=== PATIENT | female | born 1955 | race Caucasian/White ===

== ENCOUNTER 2018-06-17 02:05 | Outpatient (CLI) | payer BC, SELFPAY ==
[2018-06-17 08:55] LABS: ALT 30 U/L (12-78); AST 16 U/L (15-37); Albumin 3.5 g/dL (3.4-5.0); Alkaline Phosphatase 65 U/L (46-116); Anion Gap 7.6 mmol/L (3-11); BUN 20 mg/dL (7-18); Bilirubin, Total 0.5 mg/dL (0.2-1.0); CO2 30.4 mmol/L (21.0-32.0); CREATININE 0.95 mg/dL (0.55-1.02); Chloride 102 mmol/L (98-107); Cholesterol 222 mg/dL (50-200); Estimated GFR 59.41 (mL/min/1.73m2); Glucose 99 mg/dL (70-100); HDL Cholesterol 50 mg/dL (40-60); LDL CHOLESTEROL 148 mg/dL (<100); Potassium 4.4 mmol/L (3.5-5.1); Sodium 140 mmol/L (136-145); Total Protein 6.6 g/dL (6.4-8.2); Triglyceride 191 mg/dL (30-150)
== END 2018-06-17 02:25 ==
PROVIDERS: PCP Family Medicine; Visit Provider Family Medicine
DX: E78.5 Hyperlipidemia, unspecified (principal); I10 Essential (primary) hypertension
CPT/HCPCS: 36415; 80053; 80061; 83721

== ENCOUNTER 2018-10-23 08:17 | Outpatient (CLI) | payer BC, SELFPAY ==
--- NOTE | 2018-10-23 09:38 | DI.RAD_ITS ---
SYMPTOM/DIAGNOSIS: PERSISTENT COUGH, R05 PA AND LATERAL CHEST: There are no prior comparison exams. The heart size is normal. The aorta is tortuous. The lungs appear clear. No infiltrate or effusion is seen. There are no visible emphysematous or fibrotic changes. There are mild degenerative changes in the thoracic spine. IMPRESSION: No acute abnormality.
[2018-10-23 10:24] LABS: Abs Immature Grans 0.01 k/cumm (0.0-0.09); Absolute Basophil Count 0.02 k/cumm (0.0-0.2); Absolute Eosinophil Count 0.09 k/cumm (0.0-0.7); Absolute Lymphocyte Count 1.81 k/cumm (1.2-3.4); Absolute Monocyte Count 0.57 k/cumm (0.11-0.7); Absolute Neutrophil Count 4.52 k/cumm (1.2-6.7); Basophils % 0.3; Eosinophils % 1.3; HCT 40.9 % (36.0-46.0); HGB 13.8 g/dL (12.0-15.5); Immature Grans % 0.1; Lymphocytes % 25.8; Mean Corp. HGB Concentration 33.7 g/dL (32.0-36.0); Mean Corpuscular Hemoglobin 30.3 pg (27.0-33.0); Mean Corpuscular Volume 89.9 fL (80-95); Monocytes % 8.1; Neutrophils % 64.4; Platelet Count 253 x1000/uL (130-400); RBC 4.55 m/cumm (4.00-5.20); RBC Distribution Width 13.3 % (11.7-14.6); White Blood Cell Count 7.02 k/cumm (4.4-10.8)
== END 2018-10-23 08:37 ==
PROVIDERS: PCP Family Medicine; Visit Provider Nurse Practitioner Family
DX: R05 Cough (principal)
CPT/HCPCS: 36415; 71046; 85025

== ENCOUNTER 2018-10-26 08:27 | Emergency (ER) | payer BC, SELFPAY ==
[2018-10-26 08:56] VITALS: BP 173/82; PULSE 78; RESP 16; TEMP 37; O2SAT 97
[2018-10-26] MEDS: Gelatin SPONGE 12-7 MM PKT 1 EACH TP (09:10)
--- NOTE | 2018-10-26 09:17 | ED.GENADUL_ITS ---
Discharge Plan Disposition Patient Disposition: HOME Condition: Improving Discharge Details Chief Complaint: Vascular Clinical Impression: Bleeding from varicose vein Primary Care Provider: Lupe Rogers ED Provider: Can Hua Home Meds and New Rx's Prescriptions: Continued albuterol sulfate [ProAir HFA] 90 mcg/actuation HFA aerosol inhaler 2 puff IH QID PRN (Reason: shortness of breath or wheezing) Qty: 8.5 RF: 1 triamcinolone acetonide 0.5 % cream 1 applic TP BID Qty: 15 RF: 1 prednisone 20 mg tablet 40 mg PO DAILY 5 Days Qty: 10 RF: 0 benzonatate 100 mg capsule 100 - 200 mg PO TID PRN (Reason: cough) Qty: 60 RF: 0 aspirin [Aspir-81] 81 MG tablet,delayed release (DR/EC) 1 tab PO DAILY RF: 0 Prilosec OTC 20 MG tablet,delayed release (DR/EC) 20 tab PO Every Other Day RF: 0 One Daily For Women 1 EACH tablet 1 ea PO MOST DAYS RF: 0 calcium carbonate-vitamin D3 [Caltrate with Vitamin D3] 1 EACH tablet 1 ea PO BID RF: 0 pravastatin 10 MG tablet 10 mg PO DAILY Qty: 30 RF: 11 hydrochlorothiazide 25 MG tablet 1 tab PO QAM Qty: 30 RF: 11 fluoxetine 20 MG capsule 20 mg PO DAILY Qty: 30 RF: 6 amlodipine 5 mg tablet 5 mg PO DAILY Qty: 30 RF: 3 Discharge Instructions Additional Instructions: Leave dressing in place for 72 hours. Then placed Band-Aid for the next 3-5 days time. Return for any acute concerns. Continue your regular medication Medical Decision Making 63-year-old female presents with punctate left anterior tibial bleeding varicosity. Ceased with pressure. I placed a small piece of Gelfoam and pressure dressing with persistent resolution of bleeding. Patient will be discharged home. See discharge instructions HPI General Mode of arrival: ambulatory . Date/Time Provider Initiated Documentation: 10/26/18 09:01 . Limitations to Documentation: no limitations . Information obtained by: patient . History of Present Illness 63 year old F presents to the emergency department with the chief complaint of Left lower extremity anterior tibia bleed, described as moderate, and it has been now resolved. other things that improve symptom(s), (Pressure) No exacerbating factors reported . Patient notes no other symptoms.. Patient did receive the following treatments prior to arrival, none Related Data Home Medications Medication Instructions Recorded Confirmed Prilosec OTC 20 tab PO Every Other Day 12/21/12 10/26/18 aspirin [Aspir-81] 1 tab PO DAILY tab-cap 12/21/12 10/26/18 One Daily For Women 1 ea PO MOST DAYS tab 12/30/12 10/26/18 calcium carbonate-vitamin D3 1 ea PO BID tab 12/30/12 10/26/18 [Caltrate with Vitamin D3] fluoxetine 20 mg PO DAILY #30 tab-cap 04/20/18 10/26/18 hydrochlorothiazide 1 tab PO QAM #30 tab-cap 04/20/18 10/26/18 pravastatin 10 mg PO DAILY #30 tab-cap 04/20/18 10/26/18 albuterol sulfate HFA 90 2 puff IH QID PRN #8.5 gm 09/08/18 10/26/18 mcg/actuation aerosol inhaler triamcinolone acetonide 0.5 % 1 applic TP BID #15 gm 09/08/18 10/26/18 topical cream amlodipine 5 mg tablet 5 mg PO DAILY #30 tab 10/16/18 10/26/18 benzonatate 100 mg capsule 100 - 200 mg PO TID PRN #60 cap 10/22/18 10/26/18 prednisone 20 mg tablet 40 mg PO DAILY 5 Days #10 tab 10/22/18 10/26/18 Previous Rx's Medication Instructions Recorded fluoxetine 20 mg PO DAILY #30 tab-cap 04/20/18 hydrochlorothiazide 1 tab PO QAM #30 tab-cap 04/20/18 pravastatin 10 mg PO DAILY #30 tab-cap 04/20/18 albuterol sulfate HFA 90 2 puff IH QID PRN #8.5 gm 09/08/18 mcg/actuation aerosol inhaler triamcinolone acetonide 0.5 % 1 applic TP BID #15 gm 09/08/18 topical cream amlodipine 5 mg tablet 5 mg PO DAILY #30 tab 10/16/18 benzonatate 100 mg capsule 100 - 200 mg PO TID PRN #60 cap 10/22/18 prednisone 20 mg tablet 40 mg PO DAILY 5 Days #10 tab 10/22/18 Allergies Allergy/AdvReac Type Severity Reaction Status Date / Time lisinopril AdvReac Intermediate COUGH Verified 10/26/18 09:00 General Stated Complaint: Vascular MOUNIKA: 4 Review of Systems Review of Systems 8 systems reviewed and otherwise - [facility] Medical History Gastroesophageal reflux disease (Chronic) Essential hypertension (Chronic 06/09/13) Family History Mother Stroke Father Essential hypertension Aortic aneurysm Neoplasm Sister Diabetes Morbid obesity Essential hypertension Heart disease Brother Morbid obesity Essential hypertension Chronic kidney disease Neoplasm Grandfather No problems noted. Grandfather No problems noted. Grandmother No problems noted. Grandmother No problems noted. Sister Morbid obesity Essential hypertension Depression Social History Smoking and Tabacco status: Never Exam Narrative Exam Narrative: GEN: awake, alert, oriented 3. Pleasant, well groomed, interactive. HEAD: Normocephalic, atraumatic ENT: Mucous membranes moist, oropharynx unremarkable, External ear exam unremarkable EYES: PERRL, EOMI EXT: Full ROM, no edema, no rash. Left mid anterior tibia with bleeding varicosity. Neuro: Grossly normal neurologic exam, conversant, interactive. Psych: Speech fluent, thoughts congruent, affect normal Course Vital Signs Temperature 37 C 10/26/18 08:56 Pulse 78 10/26/18 08:56 Respiratory Rate 16 10/26/18 08:56 Blood Pressure 173/82 H 10/26/18 08:56 Pulse Oximetry 97 10/26/18 08:56 Temperature 37 C 10/26/18 08:56 Temperature Source Skin 10/26/18 08:56 Pulse 78 10/26/18 08:56 Respiratory Rate 16 10/26/18 08:56 Respiratory Effort Non-Labored 10/26/18 08:56 Blood Pressure 173/82 H 10/26/18 08:56 Blood Pressure Position Supine 10/26/18 08:56 Pulse Oximetry 97 10/26/18 08:56 Oxygen Delivery Method Room Air 10/26/18 08:56 Oxygen Flow Rate 0 10/26/18 08:56 Pain Level 0 10/26/18 08:56
== END 2018-10-26 09:25 | disposition home or self-care (01) ==
PROVIDERS: Emergency Provider Emergency Medicine; PCP Family Medicine
DX: I83.892 Varicose veins of left lower extremity with other complications (principal); I10 Essential (primary) hypertension
CPT/HCPCS: 99282

== ENCOUNTER 2019-04-09 02:07 | Outpatient (CLI) | payer BC, SELFPAY ==
[2019-04-09 09:36] LABS: ALT 28 U/L (12-78); AST 14 U/L (15-37); Albumin 3.6 g/dL (3.4-5.0); Alkaline Phosphatase 69 U/L (46-116); Anion Gap 8.9 mmol/L (3-11); BUN 14 mg/dL (7-18); Bilirubin, Total 0.5 mg/dL (0.2-1.0); CO2 29.1 mmol/L (21.0-32.0); CREATININE 0.76 mg/dL (0.55-1.02); Calcium 8.6 mg/dL (8.5-10.1); Calculated LDL 122 mg/dL; Chloride 98 mmol/L (98-107); Cholesterol 194 mg/dL (50-200); Glucose 102 mg/dL (70-100); HDL Cholesterol 48 mg/dL (40-60); Magnesium 1.8 mg/dL (1.8-2.4); Sodium 136 mmol/L (136-145); Total Protein 6.9 g/dL (6.4-8.2); Triglyceride 124 mg/dL (30-150)
== END 2019-04-09 02:27 ==
PROVIDERS: PCP Family Medicine; Visit Provider Family Medicine
DX: I10 Essential (primary) hypertension (principal); E78.5 Hyperlipidemia, unspecified; E83.42 Hypomagnesemia
CPT/HCPCS: 36415; 80053; 80061; 83721; 83735

== ENCOUNTER 2019-06-17 06:40 | Outpatient (CLI) | payer BC, SELFPAY ==
--- NOTE | 2019-06-17 07:29 | DI.MAMMO_ITS ---
EXAM: MAMMO SCREENING CLINICAL HISTORY: screening,Z12.39. TECHNIQUE: Mammograms were interpreted according to the usual protocol including computer analysis w Esc[employer] CAD system, tomosynthesis and C-view imaging. FINDINGS: The breast tissue is moderately radiodense. There is no evidence of a dominant mass. There is no yonathan dence of suspicious calcifications and there has been no significant interval change when compared wi th previous images. IMPRESSION: No evidence of malignancy, category 1, yearly screening mammography is recommended. Breast density, category B. BI-RADS Cat 1 - Negative. Breast Density - Category B - Scattered areas of fibroglandular density.
== END 2019-06-17 07:00 ==
PROVIDERS: PCP Family Medicine; Visit Provider Family Medicine
DX: Z12.31 Encounter for screening mammogram for malignant neoplasm of breast (principal)
CPT/HCPCS: 77063; 77067

== ENCOUNTER 2019-11-03 02:16 | Outpatient (CLI) | payer BC, MEDICARE, SELFPAY ==
--- NOTE | 2019-11-03 09:15 | DI.RAD_ITS ---
EXAM: RF BARIUM SWALLOW CLINICAL HISTORY: choking, T17.308A TECHNIQUE: 2D and realtime digital imaging was performed. CONTRAST MATERIAL: Thick and thin barium and barium tablet were administered. COMPARISON: XR CHEST 2V PA LATERAL from 10/23/2018 FINDINGS: Initial plain film of the chest reveals normal heart size and clear lung up. The aorta is tortuo us. The lateral caster helper view of the neck shows degenerative changes greatest of the facet joints. The airway is intact. Esophagus: The patient swallowed barium without difficulty. No aspiration was observed during the ex am. There is normal peristalsis. There is a mildly narrowing Schatzki ring. The barium tablet pass ed through without delay. There is a small sliding hiatal hernia. There is severe gastroesophageal reflux when the patient was placed supine. IMPRESSION: Schatzki ring without significant narrowing. Severe gastroesophageal reflux. Fluoro time: 27 sec, 8.42 mGy
[2019-11-03] MEDS: Barium Sulfate 60% W/V 355 ML BTL PO (10:13)
[2019-11-03] MEDS: Simethicone/Sod Bicarb/Cit Ac, 4 gram PACKET 1 PACKET PO (10:14)
[2019-11-03] MEDS: Barium Sulfate 700 MG TAB PO (10:14)
== END 2019-11-03 02:36 ==
PROVIDERS: PCP Family Medicine; Visit Provider Family Medicine
DX: K22.2 Esophageal obstruction (principal); K21.9 Gastro-esophageal reflux disease without esophagitis; T17.308A Unspecified foreign body in larynx causing other injury, initial encounter
CPT/HCPCS: 74221; J3490

== ENCOUNTER 2020-07-12 00:20 | Outpatient (CLI) | payer BC, SELFPAY ==
[2020-07-14 22:30] LABS: Patient Race White; SARS-CoV-2 Specimen Source Nasal
[2020-07-15 10:28] LABS: SARS-CoV-2 RNA Detected (Undetected)
== END 2020-07-12 00:40 ==
PROVIDERS: PCP Family Medicine; Visit Provider Nurse Practitioner Family
DX: Z11.59 Encounter for screening for other viral diseases (principal)
CPT/HCPCS: U0003

== ENCOUNTER 2020-07-25 02:24 | Outpatient (CLI) | payer BC, SELFPAY ==
[2020-07-27 18:00] LABS: Patient Race White; SARS-CoV-2 RNA Undetected (Undetected); SARS-CoV-2 Specimen Source Nasal
== END 2020-07-25 02:44 ==
PROVIDERS: PCP Family Medicine; Visit Provider Family Medicine
DX: Z11.59 Encounter for screening for other viral diseases (principal); Z20.828 Contact with and (suspected) exposure to other viral communicable diseases
CPT/HCPCS: U0003

== ENCOUNTER 2021-01-24 03:17 | Outpatient (CLI) | payer BC, SELFPAY ==
[2021-01-24 10:14] LABS: ALT 40 U/L (14-59); AST 23 U/L (15-37); Albumin 3.8 g/dL (3.4-5.0); Alkaline Phosphatase 70 U/L (46-116); Anion Gap 8.8 mmol/L (3-11); BUN 16 mg/dL (7-18); Bilirubin, Total 0.7 mg/dL (0.2-1.0); CO2 32.2 mmol/L (21.0-32.0); CREATININE 0.8 mg/dL (0.55-1.02); Calcium 9.1 mg/dL (8.5-10.1); Calculated LDL 156 mg/dL (<100); Chloride 96 mmol/L (98-107); Cholesterol 232 mg/dL (<200); Glucose 108 mg/dL (74-106); HDL Cholesterol 57 mg/dL (40-60); Potassium 3.8 mmol/L (3.5-5.1); Sodium 137 mmol/L (136-145); Total Protein 7.1 g/dL (6.4-8.2); Triglyceride 99 mg/dL (<150)
== END 2021-01-24 03:18 | disposition home or self-care (01) ==
LOC: LBO 03:17
PROVIDERS: PCP Family Medicine; Visit Provider Family Medicine
DX: I10 Essential (primary) hypertension (principal); Z13.220 Encounter for screening for lipoid disorders
CPT/HCPCS: 36415; 80053; 80061

== ENCOUNTER 2021-02-05 01:33 | Outpatient (CLI) | payer BC, SELFPAY ==
--- NOTE | 2021-02-05 08:18 | DI.MAMMO_ITS ---
Exam(s) MAMMO SCREENING EXAM: MAMMO SCREENING CLINICAL HISTORY: screening,z12.39. TECHNIQUE: Bilateral full field digital CC and MLO mammographic images were obtained with 3D tomosyn thesis and utilizing computer aided detection (CAD). COMPARISON: Prior mammograms dating back to 2013, the most recent being May 2019. FINDINGS: There has been no significant change in the appearance and distribution of fibroglandular tissue Area of asymmetric density upper-outer quadrant left breast is unchanged from 2013 and therefore pedro gn. There are no new spiculated masses nor malignant appearing microcalcification groups. There is no significant architectural distortion nor skin thickening-retraction. IMPRESSION: No radiographic evidence of malignancy. Stable benign findings. BI-RADS Category 2 - Benign Findings Breast Density - Category B - Scattered areas of fibroglandular density Breast density Category C or D implies that the patient has dense breast tissue. Dense breast tissue can make it harder to find cancer on a mammogram. Dense breast tissue is also associated with an incr eased risk of breast cancer. This information about the result of the mammogram report was provided to the patient to raise their awareness. Use this report when you speak with the patient about their risks for breast cancer, which includes their family history. At that time, you may recommend additional screening tests (Ultrasoun d or MRI) as these tests may add significant information. A negative radiographic report should not delay biopsy if a dominant or clinically suspicious mass is present. Up to ten percent of cancers are not identified on mammography. A negative report may reinforce clinical impression. Adenosis and dense breasts may obscure an underlying neoplasm. False positive reports average 6 to 10%. Patient will receive a letter notifying them of these results.
== END 2021-02-05 01:53 ==
PROVIDERS: PCP Family Medicine; Visit Provider Family Medicine
DX: Z12.31 Encounter for screening mammogram for malignant neoplasm of breast (principal)
CPT/HCPCS: 77063; 77067

== ENCOUNTER 2022-01-22 02:44 | Outpatient (CLI) | payer BC, SELFPAY ==
[2022-01-22 10:02] LABS: ALT 26 U/L (14-59); BUN 16 mg/dL (7-18); CREATININE 0.9 mg/dL (0.55-1.02); Calcium 8.9 mg/dL (8.5-10.1); Calculated LDL 134 mg/dL (<100); Chloride 103 mmol/L (98-107); Cholesterol 221 mg/dL (<200); Glucose 108 mg/dL (74-106); HDL Cholesterol 61 mg/dL (40-60); Potassium 4.2 mmol/L (3.5-5.1); Sodium 138 mmol/L (136-145); Triglyceride 133 mg/dL (<150)
[2022-01-23 09:59] LABS: HIV-1/2 Ag & Ab Screen Negative (Negative)
[2022-01-23 10:18] LABS: Hepatitis C Ab w Rflx HCV PCR Negative (Negative)
== END 2022-01-22 02:45 | disposition home or self-care (01) ==
LOC: LBO 02:45
PROVIDERS: PCP Nurse Practitioner; Visit Provider Family Medicine
DX: I10 Essential (primary) hypertension (principal); E78.5 Hyperlipidemia, unspecified; Z11.59 Encounter for screening for other viral diseases; Z11.4 Encounter for screening for human immunodeficiency virus [HIV]
CPT/HCPCS: 36415; 80048; 80061; 86803; 87389; 84460

== ENCOUNTER 2022-02-27 03:01 | Outpatient (CLI) | payer BC, SELFPAY ==
[2022-02-27 16:23] LABS: Anion Gap 7.5 mmol/L (3-11); BUN 15 mg/dL (7-18); CO2 28.5 mmol/L (21.0-32.0); CREATININE 0.8 mg/dL (0.55-1.02); Calcium 8.6 mg/dL (8.5-10.1); Chloride 95 mmol/L (98-107); Glucose 100 mg/dL (74-106); Potassium 3.7 mmol/L (3.5-5.1); Sodium 131 mmol/L (136-145)
== END 2022-02-27 03:02 | disposition home or self-care (01) ==
LOC: LBO 03:01
PROVIDERS: PCP Nurse Practitioner; Visit Provider Nurse Practitioner
DX: I10 Essential (primary) hypertension (principal)
CPT/HCPCS: 36415; 80048

== ENCOUNTER → 2022-02-27 09:04 | Outpatient (CLI) | payer BC, SELFPAY ==
--- OUTSIDE RECORDS SUMMARY | 2022-02-27 09:06 | XMS_ITS | Encounter Summary ---
:1955 Author Organization [facility] Address [address] [place] [address] Care Team Providers Name Role Phone Unavailable Primary Care Provider Unavailable Encounter Details Date Type Department Care Team Description 11/18/2005 Results Only [facility] - Corinna Johnson MD [facility] [address] [facility] [address] [place] [address] [place] [address] (Wo rk) Social History Tobacco Use Types Packs/Day Years Used Date Never Assessed Sex Assigned at Date Recorded Not on file documented as of this encounter Plan of Treatment Not on filedocumented as of this encounter Procedures Procedure Name Priority Date/Time Associated Diagnosis Comme nts CYTOPATHOLOGY Routine 11/18/2005 0:00 EST Results for this procedure are i n the results section . documented in this encounter Results CYTOPATHOLOGY (11/18/2005 0:00 EST) Pathology Report: CYTOPATHOLOGY REPORT [facility] Reports generated via electronic interface contain gilbert ginal data; however they are lacking the format of the original re port. Caution should be taken when reading/interpreting unfo rmatted reports. Name: ? DIANNE ESQUIVEL ? Accession #: ? [id number] : ? 1955 (Age: 50) ??F ?Collect Date: ? 10/24 Location: ? [facility] ? Receive Date : ? 11/20/2005 Provider: ?CORINNA AARON MD Copy to: ? Specimen/Source: ? ThinPrep Pap Test, Cervix/Endocervix, processed on [employer] ThinPrep Imaging System, with manual evaluation Last Menstrual Period: ? Menstrual/ Status: ? Post Menopausal Treatment History: ? Cryotherapy: 26 yrs ago ? SPECIMEN ADEQUACY ? Satisfactory for Evaluation - assessment of transformation zone component not appl icable ( e.g. atrophy, vaginal sample, hysterectomy) - scant squamous epithelial component secondary to exc essive inflammation GENERAL CATEGORIZATION ? Negative for Intraepithelial Lesion or Malignan cy ? Document reviewed and electronically signed by: ? Radha Stringer, SCT(ASCP) ? Report Date: ??11/26/2005 09:25 End of Report Specimen Performing Organization Address City/State/ZIP Code Phon e Number [facility] [address] [place] [address] SERVICES [facility] [address] [place] [address] documented in this encounter Visit Diagnoses Not on filedocumented in this encounter
--- OUTSIDE RECORDS SUMMARY | 2022-02-27 09:06 | XMS_ITS | Encounter Summary ---
:1955 Author Organization [facility] Address [address] [place] [address] Care Team Providers Name Role Phone Unavailable Primary Care Provider Unavailable Encounter Details Date Type Department Care Team Description 12/09/[address] [facility] - Jcarlos Alan MD conversion [address] [place] [address] [place], [place] [id number] [phone] Social History Tobacco Use Types Packs/Day Years Used Date Never Assessed Sex Assigned at Date Recorded Not on file documented as of this encounter Plan of Treatment Not on filedocumented as of this encounter Procedures Procedure Name Priority Date/Time Associated Diagnosis Comme nts SURGICAL PATHOLOGY Routine 12/09/2005 0:00 EDT Re sults for this procedure are i n the results section. documented in this encounter Results SURGICAL PATHOLOGY (12/09/2005 0:00 EDT) Pathology Report: SURGICAL PATHOLOGY REPORT [facility] Reports generated via electronic interface contain gilbert ginal data; LAB however they are lacking the format of the original re port. Caution should be taken when reading/interpreting unfo rmatted reports. Name: ? DIANNE ESQUIVEL ? Accession #: ? [id number] ? : ? 1955 (Age: 50) ??F ? Collect Date: ? 12/09/2005 ? Location: ? [facility] ? Receive Date: ? 006 ? Provider: JCARLOS YEE MD Copy to: PORTIA HERBERT MD ? Final Pathologic Diagnosis: ? Colon, rectosigmoid, polypectomy: - Hyperplastic polyp (1 piece), no adenoma. Document reviewed and electronically signed by: Gail Hopkins MD Report ??Date: 12/11/2005 15:07 By the signature above, the attending physician certif ies that he/she has personally conducted a gross and/or microscopic examin ation of the described specimens and rendered or confirmed the above diagnosi s. Specimen(s) Received: ? Rectosigmoid polyp Clinical History: ? Screening Gross Description: ? Received in Hollande's fixative labelled Luigi and #1 rectosigmoid polyp is a 0.2 x 0.2 x 0.2 cm portion of clemons soft tis funmi, which is entirely submitted in one cassette. (Dr. Brooks)/[facility] End of Report Specimen Performing Organization Address City/State/ZIP Code Phon e Number [facility] [address] [place] [address] SERVICES [facility] [address] [place] [address] documented in this encounter Visit Diagnoses Not on filedocumented in this encounter
--- OUTSIDE RECORDS SUMMARY | 2022-02-27 09:06 | XMS_ITS | Encounter Summary ---
:1955 Author Organization [facility] Address [address] [place] [address] Care Team Providers Name Role Phone Unavailable Primary Care Provider Unavailable Encounter Details Date Type Department Care Team Description 06/08/2009 Orders Only [facility] Ailyn Brown MD Laboratory Services - [address] [place] [address] [address] [place] [address] [phone] Social History Tobacco Use Types Packs/Day Years Used Date Never Assessed Sex Assigned at Date Recorded Not on file documented as of this encounter Plan of Treatment Not on filedocumented as of this encounter Procedures Procedure Name Priority Date/Time Associated Comments Diagnosis HPV DETECTION, HIGH Routine 06/08/2009 14:35 Resu lts for this RISK TYPES EDT procedure are i n the results section. CYTOPATHOLOGY Routine 06/08/2009 0:00 Results for this EDT procedure are i n the results section. documented in this encounter Results HUMAN PAPILLOMA VIRUS DNA TEST (06/08/2009 14:35 EDT) Specimen Description Cervix, ThinPrep [facility] vial Result Negative for HPV [facility] types 16, 18, 31, 33, 35, 39, 45, 51, 52, 56, 58, 59, and 68. Report Status Final [facility] 06/21/2009 Specimen Performing Organization Address City/State/ZIP Code Phon e Number [facility] [address] [place] [address] SERVICES [facility] [address] [place] [address] CYTOPATHOLOGY (06/08/2009 0:00 EDT) Pathology Report: CYTOPATHOLOGY REPORT ? [facility] ? LAB Reports generated via electr Huddleic interface contain original data; ? however they are lacking the format of the original report. ? Caution should be taken when reading/interpreting unformatted reports. ? Name: ? DIANNE ESQUIVEL ? Accession #: ? [id number] ? : ? 1955 (Age: 53) ??F ?Collect Date: ? 06/08/2009 ? Location: ? [facility] ? Receive Date: ? 06/09/2009 ? Provider: ?MAKSIM ARNDT MD ? Copy to: ? Specimen/Source: ? Pap Test, Cervix/Endocervix, ThinPrep Imaging System ? with manual evaluation ? Last Menstrual Period: ? Menstrual/ Status: ? Post Menopausal ? Other: ? HPVDX - HPV testing requeste d regardless of diagnosis on current ThinPrep Pap ?? test. ? SPECIMEN ADEQUACY ? Satisfactory for Eval uation ? - assessment of transformati on zone component not applicable ( e.g. atrophy, ? vaginal sample, hysterectomy ) ? GENERAL CATEGORIZATION ? Negative for Intraepi thelial Lesion or Malignancy ? Document reviewed and electr onically signed by: ? Lynan Chriss, CT(ASCP) ? Report Date: ??10/22/ 2009 11:26 ? End of Report ? Specimen Performing Organization Address City/State/ZIP Code Phon e Number [facility] [address] [place] [address] SERVICES [facility] [address] [place] [address] documented in this encounter Visit Diagnoses Not on filedocumented in this encounter
--- OUTSIDE RECORDS SUMMARY | 2022-02-27 09:06 | XMS_ITS | Encounter Summary ---
:1955 Author Organization [facility] Address [address] [place] [address] Care Team Providers Name Role Phone Unavailable Primary Care Provider Unavailable Encounter Details Date Type Department Care Team Description 04/17/2011 Results Only [facility] Jcarlos Vega MD Laboratory Services - [address] [place] [address] [address] [place] [address] [phone] Social History Tobacco Use Types Packs/Day Years Used Date Never Assessed Sex Assigned at Date Recorded Not on file documented as of this encounter Plan of Treatment Not on filedocumented as of this encounter Procedures Procedure Name Priority Date/Time Associated Diagnosis Comme [facility] SURGICAL PATHOLOGY Routine 04/17/2011 0:00 EDT Re sults for this procedure are i n the results section. documented in this encounter Results SURGICAL PATHOLOGY (04/17/2011 0:00 EDT) Pathology Report: SURGICAL PATHOLOGY REPORT ? [facility] Reports generated via electr Solartrec interface contain original data; ? LAB however they are lacking the format of the original report. ? Caution should be taken when reading/interpreting unformatted reports. ? Name: ? SIERRA, DIANNE ? Accession #: ? [id number] ? : ? 1955 (Age: 55) ??F ? Collec t Date: ? 04/17/2011 ? Location: ? [facility] ? R eceive Date: ? 04/17/2011 ? Provider: JCARLOS WALKO MD ? Copy to: RAPHAEL RUDOLPH EBD TEACHER ? Final Pathologic Diagnosis: ? A. ?Stomach, an trum, biopsies: ? 1. ?Antral muco sa with mild chronic gastritis. ? 2. ? No Helicobacter pyl gilbert-like microorganisms identified on H&E-stained ? sections. ? B. ?Stomach, elida dy, biopsies: ? 1. ?Oxyntic-typ e mucosa with mild chronic gastritis. ? 2. ? No Helicobacter pyl gilbert-like microorganisms identified on H&E-stained ? sections. ? C. ?Stomach, po lyp, biopsy: ? 1. ?Madison grimm d polyp. ? D. ?Esophagus, lower, 37 cm, biopsies: ? 1. ?Squamous mu cosa with mild reactive epithelial changes. ? 2. ? No evidence of intr aepithelial eosinophils. ? E. ?Esophagus, mid, 22 cm, biopsies: ? 1. ?Squamous mu cosa with mild reactive epithelial changes. ? 2. ? No evidence of intr aepithelial eosinophils. ? Document reviewed and electr onically signed by: ? DILCIA C LEMUS MD ? Report ??Date: 04/19/2011 15 :38 ? By the signature above, the attending physician certifies that he/she has ? personally conducted a gross and/or microscopic examination of the described ? specimens and rendered or co nfirmed the above diagnosis. ? Specimen(s) Received: ? A. ?Bx gastric antrum ? B. ? Bx gastric body ? C. ? Fundic gland polyp ? D. ? Lower esophagus 37 cm ? E. ? Mid esophagus 22 cm ? Clinical History: ? 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 Gross Description: ? Received in formalin labelled Sierra, Dianen and biopsy gastric antrum ?? are two pink-clemons irregular s oft tissues, 0.3 x 0.2 x 0.2 cm and 0.5 x 0.2 x 0.1 cm. ??Submitted in toto as ( A). ? Received in formalin renettaDianne Delaney and biopsy gastric body are two pink-clemons irregular soft tiss ues, each 0.7 x 0.2 x 0.1 cm. ??Submitted in toto as (B). ? Received in formalin renetta Meyers, Dianne and fundic gland polyp is a ? single 0.6 x 0.3 x 0.2 cm pi nk-clemons irregular soft tissue. ??Submitted in toto as (C). ? Received in formalin renetta d Sierra, Dianne and lower esophagus 37 cm are ?? two clemons-white irregular soft tissues, 0.3 x 0.3 x 0.1 cm and 0.3 x 0.3 x 0.2 cm. Submitted in toto as (D). ? Received in formalin renetta d Sierra, Dianne and mid esophagus 22 cm are two clemons-white irregular soft tis sues, 0.2 x 0.2 x 0.1 cm and 0.5 x 0.2 x 0.1 cm. ? Submitted in toto as (E). ?? (Jordan Golden)/jonathan ? End of Report ? Specimen Performing Organization Address City/State/ZIP Code Phon e Number [facility] [address] [place] [address] SERVICES [facility] [address] [place] [address] documented in this encounter Visit Diagnoses Not on filedocumented in this encounter
--- OUTSIDE RECORDS SUMMARY | 2022-02-27 09:06 | XMS_ITS | Encounter Summary ---
:[address] [facility] Address [address] [place] [address] Care Team Providers Name Role Phone Jennifer Palmer SALES SUPPORT REPRESENTATIVE Primary Care Provider Encounter Details Date Type Department Care Team Description 01/22/2022 Lab Requisition [facility] Outr Resulting Lab, Pathology & Laboratory Provider [facility] [address] [place], [place] [id number] Social History Tobacco Use Types Packs/Day Years Used Date Never Assessed Sex Assigned at Date Recorded Not on file documented as of this encounter Plan of Treatment Not on filedocumented as of this encounter Procedures Procedure Name Priority Date/Time Associated Diagnosis Comme nts HEPATITIS C AB W Routine 01/22/2022 8:47 EDT Resu lts for this REFLEX TO HCV RNA procedure are in BY PCR the results section. documented in this encounter Results HEPATITIS C AB W REFLEX TO HCV RNA BY PCR (01/22/2022 8:47 EDT) Pathologist Sig nature Hep C Antibody Negative Negative [facility] Specimen Blood - Venous blood (substance) Performing Organization Address City/State/ZIP Code Phon e Number [facility] [address] [place] [address] SERVICES documented in this encounter Visit Diagnoses Not on filedocumented in this encounter Care Teams Hvac Service Tech Relationship Specialty Start Date End Date Jennifer Palmer NP PCP - General 04/19/11 [place], [place] [id number] documented as of this encounter
--- OUTSIDE RECORDS SUMMARY | 2022-02-27 09:06 | XMS_ITS | Encounter Summary ---
:1955 Author Organization [facility] Address [address] [place] [address] Care Team Providers Name Role Phone Jennifer Palmer NP Primary Care Provider Encounter Details Date Type Department Care Team Description 05/29/2017 Results Only [facility]- PRISM Beth Tellez, REAL ESTATE AGENCY PRINCIPAL [phone] [facility] [place] [address] (Wo rk) Social History Tobacco Use Types Packs/Day Years Used Date Never Assessed Sex Assigned at Date Recorded Not on file documented as of this encounter Plan of Treatment Not on filedocumented as of this encounter Procedures Procedure Name Priority Date/Time Associated Diagnosis Comme nts PAP TEST- RESULT Routine 05/29/2017 0:00 EDT Resu lts for this ONLY procedure are i n the results section. documented in this encounter Results PAP TEST- RESULT ONLY (05/29/2017 0:00 EDT) Pathology Report: CYTOPATHOLOGY REPORT [facility] Reports generated via electronic interface contain gilbert ginal data; SERVICES however they are lacking the format of the original re port. Caution should be taken when reading/interpreting unfo rmatted reports. Name: ? DIANNE ESQUIVEL ? Accession #: ? [id number] ? : ? 1955 (Age: 61) ??F ?Collect Date: ? 05/29/2017 ? Location: ? [facility] ? Receive Date: ? 05/30/20 17 ? Provider: BETH TELLEZ REAL ESTATE AGENCY PRINCIPAL Copy to: FARHAD KILGORE MD ? Final Report SPECIMEN ADEQUACY ? Satisfactory for Evaluation - assessment of transformation zone component not appl icable ( e.g. atrophy, vaginal sample, hysterectomy) GENERAL CATEGORIZATION ? Negative for Intraepithelial Lesion or Malignan cy ?? Last Menstrual Period: 2000 Specimen/Source: ??Pap Test, Cervix, ThinPrep Imaging System with manual evaluation Document reviewed and electronically signed by: ? KAN Lozano(ASCP) ? Report ??Date: 06/11/2017 14:09 HPV with Pap Test ? Date Ordered: ? 06/11/2017 ? Status: ?? Signed Out ?Date Complete: ? 06/12/2017 ? By: ??S ystem Interface ? Date Reported: ? 06/12/2017 ? Interpretation RESULT: Negative for HPV. No E6 or E7 mRNA is detected from HPV types 16,18,31,3 3,35, 39,45,51,52,56,58,59,66, and 68 by wood heel flap inserter media grecia amplification. Comments Document reviewed and electronically signed by: ? System Interface ? Report date: 06/12/2017 By the signature above, the attending physician certif ies that he/she has personally conducted a gross and/or microscopic examin ation of the described specimens and rendered or confirmed the above diagnosi s. End of Report Specimen Performing Organization Address City/State/ZIP Code Phon e Number [facility] [address] [place] [address] SERVICES documented in this encounter Visit Diagnoses Not on filedocumented in this encounter Care Teams Commercial Counsel Relationship Specialty Start Date End Date Jennifer Palmer NP PCP - General 04/19/[address] [place] [address] [place] [address] documented as of this encounter
--- OUTSIDE RECORDS SUMMARY | 2022-02-27 09:06 | XMS_ITS | Clinical Summary ---
:1955 Author Organization [facility] Address [address] [place] [address] Care Team Providers Name Role Phone Jennifer Palmer NP Primary Care Provider Encounters Date Type Specialty Care Team Description 01/22/2022 Lab Requisition Clinical Laboratory Outr Resulting Lab , Provider 01/22/2022 Lab Requisition Clinical Laboratory Outr Resulting Lab , Provider from Last 3 Months Social History Tobacco Use Types Packs/Day Years Used Date Never Assessed Sex Assigned at Date Recorded Not on file Plan of Treatment Health Maintenance Due Date Last Done Comments COVID-19 Vaccine (1) 1959 Fall Risk Screening 2019 Hepatitis C Screen Completed 01/22/2022 Procedures Procedure Name Priority Date/Time Associated Comments Diagnosis HEPATITIS C AB W Routine 01/22/2022 8:47 EDT Resu lts for this REFLEX TO HCV RNA BY procedu re are in PCR the results section. HIV 1/2 ANTIGEN AND Routine 01/22/2022 8:47 EDT R esults for this ANTIBODY, 4TH procedure are in GENERATION the results section. from Last 3 Months Results HEPATITIS C AB W REFLEX TO HCV RNA BY PCR (01/22/2022 8:47 EDT) Pathologist Sig nature Hep C Antibody Negative Negative [facility] SERVICES Specimen Blood - Venous blood (substance) Performing Organization Address City/State/ZIP Code Phon e Number [facility] [address] [place] [address] SERVICES HIV 1/2 ANTIGEN AND ANTIBODY, 4TH GENERATION (01/22/2022 8:47 EDT) HIV 1 and 2 NegativeComment: If Negative [facility] Antibody/p24 acute HIV-1 LABORATORY Antigen, 4th infection is SERVICES Generation suspected in a high risk patient, submit plasma specimen for HIV-1 RNA quantitation test. Specimen Blood - Venous blood (substance) Narrative [facility] SERVICES - 01/23/2022 9:55 EDT Fourth Generation assay performed on the Siemens Centaur XPT. Performing Organization Address City/State/ZIP Code Phon e Number [facility] [address] [place] [address] SERVICES from Last 3 Months Care Teams Fryer Line Helper Relationship Specialty Start Date End Date Jennifer Palmer NP PCP - General 04/19/11 [address] [place], [place] [id number]
--- OUTSIDE RECORDS SUMMARY | 2022-02-27 09:06 | XMS_ITS | Encounter Summary ---
:1955 Author Organization [facility] Address [address] [place] [address] Care Team Providers Name Role Phone Unavailable Primary Care Provider Unavailable Encounter Details Date Type Department Care Team Description 05/18/2008 Before PRISM [facility] Converted Visit Mapsubha conversion D, CLINICAL RESEARCH TECH (Mapsubha) [address] [facility] [place] [address] [place], [place] [phone] (Wo rk) Social History Tobacco Use Types Packs/Day Years Used Date Never Assessed Sex Assigned at Date Recorded Not on file documented as of this encounter Plan of Treatment Not on filedocumented as of this encounter Procedures Procedure Name Priority Date/Time Associated Comments Diagnosis HPV DETECTION, HIGH Routine 05/18/2008 8:20 Resul ts for this RISK TYPES EDT procedure are i n the results section. CYTOPATHOLOGY Routine 05/18/2008 0:00 Results for this EDT procedure are i n the results section. documented in this encounter Results HUMAN PAPILLOMA VIRUS DNA TEST (05/18/2008 8:20 EDT) Specimen Description Cervix, ThinPrep [facility] vial Result Negative for HPV [facility] types 16, 18, 31, 33, 35, 39, 45, 51, 52, 56, 58, 59, and 68. Report Status Final [facility] 05/26/2008 Specimen Performing Organization Address City/State/ZIP Code Phon e Number [facility] [address] [place] [address] SERVICES [facility] [address] [place] [address] CYTOPATHOLOGY (05/18/2008 0:00 EDT) Pathology Report: CYTOPATHOLOGY REPORT ? [facility] ? LAB Reports generated via electr Shoeboxedic interface contain original data; ? however they are lacking the format of the original report. ? Caution should be taken when reading/interpreting unformatted reports. ? Name: ? DIANNE ESQUIVEL ? Accession #: ? [id number] ? : ? 1955 (Age: 52) ??F ?Collect Date: ? 05/18/2008 ? Location: ? [facility] ? Receive Date: ? 05/20/2008 ? Provider: ?PAL Fong C HAMBERLAIN CLINICAL RESEARCH TECH ? Copy to: ? Specimen/Source: ? ThinPrep Pap Test, Vagina, processed on Cytyc ThinPrep ?? Imaging System, with manual evaluation ? Last Menstrual Period: ? about 6 years ago ? Other: ? Additional clinical informat ion: cervix not well visulalized ? HPVDX - HPV testing requeste d regardless of diagnosis on current ThinPrep Pap ?? test. ? SPECIMEN ADEQUACY ? Satisfactory for Eval uation ? - assessment of transformati on zone component not applicable ( e.g. atrophy, ? vaginal sample, hysterectomy ) ? - scant squamous epithelial component secondary to excessive inflammation ? GENERAL CATEGORIZATION ? Negative for Intraepi thelial Lesion or Malignancy ? Document reviewed and electr onically signed by: ? Lynan Chriss, CT(ASCP) ? Report Date: ??09/29/ 2008 16:01 ? End of Report ? Specimen Performing Organization Address City/State/ZIP Code Phon e Number [facility] [address] [place] [address] SERVICES [facility] [address] [place] [address] documented in this encounter Visit Diagnoses Not on filedocumented in this encounter
--- OUTSIDE RECORDS SUMMARY | 2022-02-27 09:06 | XMS_ITS | Encounter Summary ---
:1955 Author Organization [facility] Address [address] [place] [address] Care Team Providers Name Role Phone Jennifer Palmer NP Primary Care Provider Encounter Details Date Type Department Care Team Description 09/09/2011 Results Only [facility]- PRISM Jennifer Palmer NP [phone] [address] [place], [place] [phone] (Wo rk) Social History Tobacco Use Types Packs/Day Years Used Date Never Assessed Sex Assigned at Date Recorded Not on file documented as of this encounter Plan of Treatment Not on filedocumented as of this encounter Procedures Procedure Name Priority Date/Time Associated Diagnosis Comme nts PAP TEST- RESULT Routine 09/09/2011 0:00 EST Resu lts for this ONLY procedure are i n the results section. documented in this encounter Results PAP TEST- RESULT ONLY (09/09/2011 0:00 EST) Pathology Report: CYTOPATHOLOGY REPORT [facility] Reports generated via electronic interface contain gilbert ginal data; however they are lacking the format of the original re port. Caution should be taken when reading/interpreting unfo rmatted reports. Name: ? DIANNE ESQUIVEL ? Accession #: ? [id number] ? : ? 1955 (Age: 56) ??F ?Collect Da te: ? 09/09/2011 ? Location: ? [facility] ? Receive Date: ? 012 ? Provider: JENNIFER PALMER GENETIC SUPERVISOR Copy to: ? Final Report SPECIMEN ADEQUACY ? Unsatisfactory for Evaluation - acellular sample submitted GENERAL CATEGORIZATION ? Specimen processed and examined, but unsatisfac tory for evaluation of epithelial abnormality. Recommend repeat Pap test or further follow up, as cli nically indicated. ?? Menstural/ Status: ??Post Menopausal Specimen/Source: ??Pap Test, Cervix/Endocervix, ThinPr ep Imaging System with manual evaluation Document reviewed and electronically signed by: ? Annita Mendez, CT(ASCP) ? Report ??Date: 09/11/2011 12:13 HPV with Pap Test ? Date Ordered: ? 09/11/2011 ? Status: ?? Signed Out ?Date Complete: ? 09/12/2011 ? By: ??S ystem Interface ? Date Reported: ? 09/12/2011 ? Interpretation RESULT: Quantity not sufficient. Credit Issued Comments Document reviewed and electronically signed by: ? System Interface ? Report date: 09/12/2011 By the signature above, the attending physician certif ies that he/she has personally conducted a gross and/or microscopic examin ation of the described specimens and rendered or confirmed the above diagnosi s. End of Report Specimen Performing Organization Address City/State/ZIP Code Phon e Number [facility] [address] [place] [address] SERVICES [facility] [address] [place] [address] documented in this encounter Visit Diagnoses Not on filedocumented in this encounter Care Teams Speedboat Operator Relationship Specialty Start Date End Date Jennifer Palmer, [place] PCP - General 04/19/11 [address], [place] [address] documented as of this encounter
--- OUTSIDE RECORDS SUMMARY | 2022-02-27 09:06 | XMS_ITS | Encounter Summary ---
:1955 Author Organization [facility] Address [address] [place] [address] Care Team Providers Name Role Phone AngieJennifer valenzuela [place] Primary Care Provider Encounter Details Date Type Department Care Team Description 09/25/2011 Results Only [facility] Golden Martinez MD Laboratory Services - [address] [facility] [place] [address] [address] [place], [place] [phone] (Wo rk) Social History Tobacco Use Types Packs/Day Years Used Date Never Assessed Sex Assigned at Date Recorded Not on file documented as of this encounter Plan of Treatment Not on filedocumented as of this encounter Procedures Procedure Name Priority Date/Time Associated Diagnosis Comme nts PAP TEST- RESULT Routine 09/25/2011 0:00 EST Resu lts for this ONLY procedure are i n the results section. documented in this encounter Results PAP TEST- RESULT ONLY (09/25/2011 0:00 EST) Pathology Report: CYTOPATHOLOGY REPORT [facility] Reports generated via electronic interface contain gilbert ginal data; however they are lacking the format of the original re port. Caution should be taken when reading/interpreting unfo rmatted reports. Name: ? DIANNE ESQUIVEL ? Accession #: ? [id number] : ? 1955 (Age: 56) ??F ?Collect Date: ? 08/2011 Location: ? [facility] ? Receive Date : ? 09/26/2011 Provider: ?AGUSTIN MARTINEZ MD Copy to: ?JENNIFER RUDOLPH FURNITURE STAINER ? Specimen/Source: ? Pap Test, Source Not Provided, ThinPrep Imaging System with manual evaluation Last Menstrual Period: ? 1999 Treatment History: ? Cryotherapy: 1977 ? SPECIMEN ADEQUACY ? Satisfactory for Evaluation - assessment of transformation zone component not appl icable ( e.g. atrophy, vaginal sample, hysterectomy) GENERAL CATEGORIZATION ? Negative for Intraepithelial Lesion or Malignan cy ? Document reviewed and electronically signed by: ? KAN Gonzales(ASCP) ? Report Date: ??09/30/2011 10:17 End of Report Specimen Performing Organization Address City/State/ZIP Code Phon e Number [facility] [address] [place] [address] SERVICES [facility] [address] [place] [address] documented in this encounter Visit Diagnoses Not on filedocumented in this encounter Care Teams Heel Builder Machine Relationship Specialty Start Date End Date Jennifer Rudolph NP PCP - General 04/19/[address] [place] [address] documented as of this encounter
--- OUTSIDE RECORDS SUMMARY | 2022-02-27 09:06 | XMS_ITS | Encounter Summary ---
:1955 Author Organization [facility] Address [address] [place] [address] Care Team Providers Name Role Phone Unavailable Primary Care Provider Unavailable Encounter Details Date Type Department Care Team Description 11/30/2003 Results Only [facility] - Judith Alexander, SYSTEMS SECURITY CONSULTANT conversion [place] [address] [place] [address] [place], [place] [id number] [phone] Social History Tobacco Use Types Packs/Day Years Used Date Never Assessed Sex Assigned at Date Recorded Not on file documented as of this encounter Plan of Treatment Not on filedocumented as of this encounter Procedures Procedure Name Priority Date/Time Associated Comments Diagnosis HPV DETECTION, HIGH Routine 11/30/2003 11:25 Resu lts for this RISK TYPES EDT procedure are i n the results section. CYTOPATHOLOGY Routine 11/30/2003 0:00 Results for this EDT procedure are i n the results section. documented in this encounter Results HUMAN PAPILLOMA VIRUS DNA TEST (11/30/2003 11:25 EDT) Specimen Description Cervix, ThinPrep [facility] AB vial Result Negative for HPV [facility] types 16, 18, 31, 33, 35, 39, 45, 51, 52, 56, 58, 59, and 68. Report Status Final [facility] [id number] Specimen Performing Organization Address City/State/ZIP Code Phon e Number [facility] [address] [place] [address] SERVICES [facility] [address] [place] [address] CYTOPATHOLOGY (11/30/2003 0:00 EDT) Pathology Report: CYTOPATHOLOGY REPORT [facility] Reports generated via electronic interface contain gilbert ginal data; however they are lacking the format of the original re port. Caution should be taken when reading/interpreting unfo rmatted reports. Name: ? DIANNE ESQUIVEL ? Accession #: ? [id number] : ? 1955 (Age: 48) ??F ?Collect Date: ? 02/2004 Location: ? [facility] ? Receive Date : ? 12/02/2003 Provider: ?JUDITH ESPINO SYSTEMS SECURITY CONSULTANT Copy to: ? Specimen/Source: ?ThinPrep Pap Test, Cervix/ Endocervix Last Menstrual Period: ? 2 Years Previous Gynecologic Pathology: ? MARILYN Treatment History: ? Cryotherapy: 20 years ago Other: ? HPVDX - HPV testing requested regardless of diag nosis on current ThinPrep Pap test. ? SPECIMEN ADEQUACY ? Satisfactory for Evaluation - transformation zone component present GENERAL CATEGORIZATION ? Negative for Intraepithelial Lesion or Malignan cy INTERPRETATION ? Reactive cellular marylu nges associated with inflammation present (includes repair). ? Document reviewed and electronically signed by: ? Elgin Elizondo MD ? Report Date: ??12/08/2003 15:15 End of Report Specimen Performing Organization Address City/State/ZIP Code Phon e Number [facility] [address] [place] [phone] SERVICES [facility] [address] [place] [address] documented in this encounter Visit Diagnoses Not on filedocumented in this encounter
--- NOTE | 2022-02-27 09:15 | DI.MAMMO_ITS ---
Exam(s) MAMMO SCREENING EXAM: MAMMO SCREENING CLINICAL HISTORY: screening,z12.39 TECHNIQUE: Mammograms were interpreted according to the usual protocol including computer analysis w Owner[employer] CAD system, tomosynthesis and C-view imaging. COMPARISON: 2012 through 2020 FINDINGS: The breasts are composed of scattered fibroglandular densities, Breast Density category B. No suspicious masses or suspicious microcalcifications are seen. No skin thickening or abnormal axillary lymph nodes are seen. There has been no significant change from prior exams. IMPRESSION: BI-RADS Category 1, Negative mammogram Yearly screening mammography is recommended. Breast Density - Category B, scattered fibroglandular densities. A negative radiographic report should not delay biopsy if a dominant or clinically suspicious mass is present. Up to ten percent of cancers are not identified on mammography. A negative report may reinforce clinical impression. Adenosis and dense breasts may obscure an underlying neoplasm. False positive reports average 6 to 10%. Patient will receive a letter notifying them of these results.
== END ==
PROVIDERS: PCP Nurse Practitioner; Visit Provider Nurse Practitioner
DX: Z12.31 Encounter for screening mammogram for malignant neoplasm of breast (principal)
CPT/HCPCS: 77063; 77067

== ENCOUNTER → 2022-03-12 00:18 | Outpatient (CLI) | payer BC, SELFPAY ==
--- NOTE | 2022-03-12 07:30 | DI.US_ITS ---
APPROVED REPORT EXAM: Comprehensive 2D, Doppler, and color-flow Echocardiogram Patient Location: Out-Patient Fortune Cookie Maker: Kandace Vasquez RDCS (AE) Indications: Edema,Essential HYN Other Information Study Quality: Adequate Conclusion Borderline concentric left ventricular hypertrophy. Normal left ventricular chamber size. EF is 55 to 60%. Wall motion is normal Normal right ventricular size and systolic function Both atria are normal in size Aortic valve is trileaflet without stenosis or regurgitation Mild mitral annular calcification. Trace mitral regurgitation Normal tricuspid valve with trace to mild regurgitation. Estimated right ventricular systolic pressu re is 30 mmHg Trivial pericardial effusion Wall motion Left Ventricle The left ventricle is normal size. The left ventricular systolic function is normal. The left ventric ular ejection fraction is within the normal range. Borderline concentric left ventricular hypertrophy . There is normal LV segmental wall motion. There is no ventricular septal defect visualized. LVEF is 55-60%. Right Ventricle The right ventricle is normal size. The right ventricular systolic function is normal. The RVSP is 30 .1mmHg. Atria The left atrium size is normal. The right atrium size is normal. The interatrial septum is intact wit h no evidence for an atrial septal defect. Aortic Valve The aortic valve is normal in structure. There is no aortic valvular stenosis. No aortic regurgitatio n is present. Mitral Valve Mild mitral annular calcification. No evidence of mitral valve stenosis. Trace mitral regurgitation. Tricuspid Valve The tricuspid valve is normal in structure. There is no tricuspid valve stenosis. Trace to mild tricu spid regurgitation. Pulmonic Valve The pulmonary valve is normal in structure. There is no pulmonic valvular stenosis. There is no pulmo tomasz valvular regurgitation. Great Vessels The aortic root is normal in size. The aortic root is normal in size. The ascending aorta is normal i n size. Aortic arch is not well visualized. IVC is normal in size and collapses >50% with inspiration . Pericardium Trace pericardial effusion. 2D Dimensions IVSD d PLAX 1.05 cm F: 0.6-1.0 LV Vol A2C d MOD 98.7 mL LVPW d PLAX 1.06 cm F: 0.6 - 1.0 LV Vol A4C d MOD 92.1 mL LVID d PLAX 5.26 cm F: 3.8 - 5.2 LA vol/ BSA A2C s A-L 31.2 mL/m2 LVDs 3.65 cm F: 2.2 - 3.5 LA vol/ BSA A4C s A-L 15.7 mL/m2 Ao Root d 2.64 cm F: 2.7 - 3.3 LA Vol/ BSA Biplane s A-L 23.1 mL/m2 RA Area A4C 12.26 cm2 LA Area A4C s MOD 13.75 cm2 RA Vol/ BSA A4C s A-L 13.7 mL/m2 LA Area A2C s MOD 20.19 cm2 Ao Asc Diam d 3.25 cm F: 2.3 - 3.1 LV EF A4C MOD 57.2 % LV EF Teichholz 56.7 % LV EF A2C MOD 58.1 % LVEF (Guevara's) 55.43 % F: 54 - 74 LV EF Biplane MOD 55.4 % LV Volume 70.85 mL F: 46 - 106 SV 53.47 mL LV Volume Index 33.26 mL/m2 F: 29 - 61 SV Index 25.08 mL/m2 LV Vol Biplane MOD 96.5 mL FS 29.90 % M-Mode TAPSE 2.43 cm (M/F) >1.7 LV Diastology MV E' medial 0.077 (>0.07 m/s) E/A Ratio 1.0 LV E/e MED 13.35 (<14) MV E Vmax 1.03 (0.4-1.3 m/s) MV E' lateral 0.098 (>0.1 m/s) MV A Vmax 1.05 (0.4-1.3 m/s) LV E/e LAT 10.45 (<14) MV E/A Ratio 0.93 MV E/E' medial 13.38 MV E/E' lateral 10.48 Aortic Valve LVOT Area 2.86 cm2 AoV Area Vmax 2.25 cm2 LVOT Vmax 1.10 m/s AoV Area/ BSA (Vmax) 1.05 cm2/m2 LVOT Mean Howie. 0.77 m/s BRAYDON Mean Howie. 2.19 cm2 LVOT Peak Grad 4.8 mmHg BRAYDON Mean Howie. Index 1.03 cm2/m2 LVOT Mean Grad 2.7 mmHg LVOT VTI 0.237 m LVOT Diam s 1.90 cm AoV Vmax 1.40 m/s Velocity Ratio 0.78 AoV Mean Howie. 1.00 m/s AoV Peak Grad 7.8 mmHg LVOT SV 67.86 mL AoV Mean Grad 4.5 mmHg AoV VTI 0.304 m AoV Area VTI 2.23 cm2 AoV Area/ BSA (VTI) 1.05 cm/m2 Mitral Valve MV DT 180 (160-240 msec) MV PHT 52 msec MV Area PHT 4.22 cm2 MV VTI 0.383 m MV Area VTI 1.77 (4.0-6.0 cm2) Pulmonary Valve PV Vmax 0.99 (0.5-1.5 m/s) RVOT Peak Gr. 2.12 mmHg PV Peak Grad 3.9 mmHg RVOT Mean Gr. 1.10 mmHg PV Mean Grad 1.9 mmHg RVOT VTI 0.167 m PV VTI 0.207 m RVOT Vmax 0.73 m/s Tricuspid Valve TR Peak Grad 27.1 mmHg TR Vmax 2.60 m/s RA Pressure 3.00 mmHg RVSP (TR) 30.1 mmHg
== END ==
PROVIDERS: PCP Nurse Practitioner; Visit Provider Nurse Practitioner
DX: I10 Essential (primary) hypertension (principal); R60.9 Edema, unspecified
CPT/HCPCS: 93306

== ENCOUNTER 2022-03-16 16:33 | Outpatient (REF) | payer BC, SELFPAY | END 2022-03-16 16:34 | disposition home or self-care (01) | LOC: LBN 16:33 | PROVIDERS: PCP Nurse Practitioner; Visit Provider Nurse Practitioner Family | DX: J02.9 Acute pharyngitis, unspecified (principal); J06.9 Acute upper respiratory infection, unspecified | CPT/HCPCS: 87081 ==

== ENCOUNTER → 2022-07-09 02:59 | Outpatient (CLI) | payer BC, SELFPAY ==
--- NOTE | 2022-07-09 07:45 | DI.RAD_ITS ---
Exam(s) XR LUMBAR SPINE COMPLETE EXAM: XR LUMBAR SPINE COMPLETE CLINICAL HISTORY: back pain, sciatica, m54.31. TECHNIQUE: 2D digital imaging was performed. COMPARISON: No exams were available for comparison FINDINGS: Five views: No evidence of fracture or listhesis. There is moderate-advanced multilevel disc space narrowing and mild degenerative scoliosis. Large bridging left-sided osteophytes at L2-3 level with mild asymmetr ic left-sided narrowing of the disc space at this level. SI joints appear unremarkable. Multilevel mild degenerative changes in the facet joints. IMPRESSION: Chronic multilevel degenerative disc disease. DATA REPOSITORY: RADIATION DOSE DELIVERED:
--- NOTE | 2022-07-09 07:45 | DI.RAD_ITS ---
Exam(s) XR KNEE RT 3V AP,LAT,YAYA EXAM: XR KNEE RT 3V AP,LAT,YAYA CLINICAL HISTORY: rt knee pain, m25.561. TECHNIQUE: 2D digital imaging was performed. COMPARISON: No exams were available for comparison FINDINGS: 3 views No evidence of fracture. Small joint effusion. Calcification or at the insertional aspect of the qu adriceps on the anterosuperior aspect of the patella. Bone density is normal. No joint space narrow ing. No marginal osteophytes. No osseous lesions. IMPRESSION: Minimal findings. Small joint effusion. DATA REPOSITORY: RADIATION DOSE DELIVERED:
== END ==
PROVIDERS: PCP Nurse Practitioner Family; Visit Provider Nurse Practitioner Family
DX: M54.31 Sciatica, right side (principal); M25.461 Effusion, right knee; M47.816 Spondylosis without myelopathy or radiculopathy, lumbar region
CPT/HCPCS: 73562; 72110

== ENCOUNTER 2023-01-06 02:54 | Outpatient (CLI) | payer BC, SELFPAY ==
[2023-01-06 12:53] LABS: ALT 27 U/L (14-59); AST 13 U/L (15-37); Albumin 3.4 g/dL (3.4-5.0); Alkaline Phosphatase 79 U/L (46-116); Anion Gap 2.3 mmol/L (3-11); BUN 17 mg/dL (7-18); Bilirubin, Total 0.4 mg/dL (0.2-1.0); CO2 28.7 mmol/L (21.0-32.0); CREATININE 0.8 mg/dL (0.55-1.02); Calcium 8.6 mg/dL (8.5-10.1); Calculated LDL 110 mg/dL (<100); Chloride 104 mmol/L (98-107); Cholesterol 189 mg/dL (<200); Estimated GFR 80.21 (mL/min/1.73m2); Glucose 103 mg/dL (74-106); HDL Cholesterol 55 mg/dL (40-60); Sodium 135 mmol/L (136-145); Total Protein 6.9 g/dL (6.4-8.2); Triglyceride 121 mg/dL (<150)
== END 2023-01-06 02:55 | disposition home or self-care (01) ==
LOC: LOS 02:54
PROVIDERS: PCP Nurse Practitioner Family; Visit Provider Nurse Practitioner Family
DX: E78.5 Hyperlipidemia, unspecified (principal); I10 Essential (primary) hypertension
CPT/HCPCS: 36415; 80053; 80061

== ENCOUNTER 2023-01-13 02:37 | Outpatient (CLI) | payer BC, SELFPAY ==
[2023-01-13] MEDS: Albuterol HFA 18 GM 200 PUFF INH IH (15:52)
[2023-01-13] MEDS: Inhaler, Assist Device 1 EACH MC (15:52)
--- NOTE | 2023-01-14 13:24 | W.PFT ---
Date of service: 01/13/23 Time of Service: 14:53 Pulmonary Function Test Result Indications: Dyspnea Interpretation Spirometry: There is no airflow limitation. There is no bronchodilator response. Lung Volumes: Normal lung volumes Diffusion Capacity: Normal diffusion Airway Pressure: Normal airways resistance Impression Normal pulmonary function testing Clinical Correlation therefore is recommended.
== END 2023-01-13 02:38 | disposition home or self-care (01) ==
LOC: RT 02:37
PROVIDERS: PCP Nurse Practitioner Family; Visit Provider Nurse Practitioner Family
DX: R06.02 Shortness of breath (principal)
CPT/HCPCS: 94060; 94726; 94729

== ENCOUNTER 2023-02-12 01:51 | Outpatient (CLI) | payer BC, SELFPAY ==
--- NOTE | 2023-02-12 15:02 | DI.US_ITS ---
APPROVED REPORT EXAM: Comprehensive 2D, Doppler, and color-flow Echocardiogram Patient Location: Out-Patient Software Development Engineer: Bernardino Wong RDMS, RVT Indications: SOB ON EXERTION, EDEMA Other Information Study Quality: Adequate Conclusion Normal left ventricular wall thickness and chamber size. Ejection fraction is 60 to 65%. Wall motio n is normal Normal right ventricular size and systolic function Both atria are normal in size There is no structural or hemodynamically significant valvular disease Estimated right ventricular systolic pressure is 37 mmHg Wall motion Left Ventricle The left ventricle is normal size. The left ventricular systolic function is normal. The left ventric ular ejection fraction is within the normal range. There is normal left ventricular wall thickness. T here is normal LV segmental wall motion. There is no ventricular septal defect visualized. LVEF is 63 %. Right Ventricle The right ventricle is normal size. The right ventricular systolic function is normal. The RVSP is 36 .8 mmHg. Atria The left atrium size is normal. The right atrium size is normal. The interatrial septum is intact wit h no evidence for an atrial septal defect. Aortic Valve The aortic valve is normal in structure. Aortic valve is trileaflet. There is no aortic valvular sten osis. No aortic regurgitation is present. Mitral Valve The mitral valve is normal in structure. No evidence of mitral valve stenosis. Trace to mild mitral r egurgitation. Tricuspid Valve The tricuspid valve is normal in structure. There is no tricuspid valve stenosis. Trace tricuspid reg urgitation. Pulmonic Valve The pulmonary valve is normal in structure. There is no pulmonic valvular stenosis. There is no pulmo tomasz valvular regurgitation. Great Vessels The aortic root is normal in size. The ascending aorta is normal in size. Aortic arch is not well vis ualized. IVC is normal in size and collapses >50% with inspiration. Pericardium There is no pericardial effusion. 2D Dimensions IVSD d PLAX 0.65 cm F: 0.6-1.0 LV Vol A2C d MOD 120.4 mL LVPW d PLAX 0.66 cm F: 0.6 - 1.0 LV Vol A4C d MOD 150.6 mL LVID d PLAX 5.36 cm F: 3.8 - 5.2 LV EF A4C MOD 61.7 % LVDs 3.35 cm F: 2.2 - 3.5 LV EF A2C MOD 62.0 % Ao Root d 3.12 cm F: 2.7 - 3.3 LV EF Biplane MOD 61.5 % Ao Asc Diam d 2.97 cm F: 2.3 - 3.1 SV 84.97 mL LV EF Teichholz 65.9 % SV Index 38.73 mL/m2 LVEF (Guevara's) 61.45 % F: 54 - 74 LV Volume 100.65 mL F: 46 - 106 LV Volume Index 45.75 mL/m2 F: 29 - 61 LV Vol Biplane MOD 138.3 mL FS 36.60 % M-Mode TAPSE 2.24 cm (M/F) >1.7 LV Diastology MV E' medial 0.112 (>0.07 m/s) E/A Ratio 0.9 LV E/e MED 9.80 (<14) MV E Vmax 1.10 (0.4-1.3 m/s) MV E' lateral 0.122 (>0.1 m/s) MV A Vmax 1.20 (0.4-1.3 m/s) LV E/e LAT 9.00 (<14) MV E/A Ratio 0.89 MV E/E' medial 9.83 MV E/E' lateral 9.04 Aortic Valve LVOT Area 3.17 cm2 AoV Area Vmax 2.79 cm2 LVOT Vmax 1.21 m/s AoV Area/ BSA (Vmax) 1.27 cm2/m2 LVOT Mean Howie. 0.80 m/s BRAYDON Mean Howie. 2.54 cm2 LVOT Peak Grad 5.8 mmHg BRAYDON Mean Howie. Index 1.16 cm2/m2 LVOT Mean Grad 3.0 mmHg LVOT VTI 0.271 m LVOT Diam s 2.00 cm AoV Vmax 1.37 m/s Velocity Ratio 0.88 AoV Mean Howie. 1.00 m/s AoV Peak Grad 7.5 mmHg LVOT SV 85.75 mL AoV Mean Grad 4.4 mmHg AoV VTI 0.278 m AoV Area VTI 3.09 cm2 AoV Area/ BSA (VTI) 1.41 cm/m2 Mitral Valve MV DT 153 (160-240 msec) MV PHT 44 msec MV Area PHT 4.97 cm2 MV VTI 0.377 m MV Area VTI 2.28 (4.0-6.0 cm2) Pulmonary Valve PV Vmax 1.05 (0.5-1.5 m/s) RVOT Peak Gr. 2.13 mmHg PV Peak Grad 4.4 mmHg RVOT Mean Gr. 0.95 mmHg PV Mean Grad 2.3 mmHg RVOT VTI 0.153 m PV VTI 0.202 m RVOT Vmax 0.73 m/s Tricuspid Valve TR Peak Grad 33.8 mmHg TR Vmax 2.91 m/s RA Pressure 3.00 mmHg RVSP (TR) 36.8 mmHg
== END 2023-02-12 02:11 ==
LOC: DI 01:51
PROVIDERS: PCP Nurse Practitioner Family; Visit Provider Nurse Practitioner Family
DX: R06.02 Shortness of breath (principal); R60.9 Edema, unspecified
CPT/HCPCS: 93306

== ENCOUNTER → 2023-07-15 02:11 | Outpatient (CLI) | payer MEDICARE, SELFPAY ==
--- NOTE | 2023-07-15 08:15 | DI.MAMMO_ITS ---
Exam(s) MAMMO SCREENING EXAM: MAMMO SCREENING CLINICAL HISTORY: screening,z12.39 TECHNIQUE: Bilateral full field digital CC and MLO mammographic images were obtained with 3D tomosyn thesis and utilizing computer aided detection (CAD). COMPARISON: Available for comparison. FINDINGS: Masses/Architectural Distortion: None seen. Microcalcifications: No suspicious pleomorphic-type are seen. Skin Thickening/Nipple Retraction: None. IMPRESSION: 1. No significant interval change with no specific features of malignancy noted. 2. Unless there is more urgent need, screening mammography is recommended, as per [employer] guidelines. BI-RADS Category 1 - Negative Breast Density - Category B - Scattered areas of fibroglandular density Breast density category C or D implies that the patient has dense breast tissue. Dense breast tissue is very common and is not abnormal but dense breast tissue can make it harder to find cancer on a ma mmogram. Also, dense breast tissue may increase their breast cancer risk. This information about the result of the mammogram report was provided to the patient to raise their awareness. Use this report when you speak with the patient about their risks for breast cancer, which includes their family hist ory. At that time, you may recommend for more screening tests (Ultrasound or MRI) as they might be us eful based on their risk. A negative radiographic report should not delay biopsy if a dominant or clinically suspicious mass is present. Up to ten percent of cancers are not identified on mammography. A negative report may reinforce clinical impression. Adenosis and dense breasts may obscure an underlying neoplasm. False positive reports average 6 to 10%. Patient will receive a letter notifying them of these results.
== END ==
PROVIDERS: PCP Nurse Practitioner Family; Visit Provider Nurse Practitioner Family
DX: Z12.31 Encounter for screening mammogram for malignant neoplasm of breast (principal)
CPT/HCPCS: 77063; 77067

== ENCOUNTER 2024-01-05 04:52 | Outpatient (CLI) | payer MEDICARE, SELFPAY ==
[2024-01-05 12:55] LABS: Albumin 3.7 g/dL (3.4-5.0); BUN 12 mg/dL (7-18); Bilirubin, Total 0.7 mg/dL (0.2-1.0); CREATININE 0.8 mg/dL (0.55-1.02); Calcium 8.8 mg/dL (8.5-10.1); Calculated LDL 102 mg/dL (<100); Cholesterol 186 mg/dL (<200); Estimated GFR 79.71 (mL/min/1.73m2); Glucose 100 mg/dL (74-106); HDL Cholesterol 64 mg/dL (40-60); Total Protein 6.9 g/dL (6.4-8.2); Triglyceride 103 mg/dL (<150)
[2024-01-05 12:56] LABS: ALT 29 U/L (14-59); AST 18 U/L (15-37); Alkaline Phosphatase 68 U/L (46-116); Anion Gap 8.4 mmol/L (3-11); CO2 28.6 mmol/L (21.0-32.0); Chloride 99 mmol/L (98-107); Potassium 3.7 mmol/L (3.5-5.1); Sodium 136 mmol/L (136-145)
== END 2024-01-05 04:53 | disposition home or self-care (01) ==
LOC: LOS 04:52
PROVIDERS: PCP Nurse Practitioner Family; Visit Provider Nurse Practitioner Family
DX: E78.5 Hyperlipidemia, unspecified (principal)
CPT/HCPCS: 36415; 80053; 80061

== ENCOUNTER → 2024-03-11 13:13 | Outpatient (BNVA) | payer MEDICARE, SELFPAY | PROVIDERS: PCP Nurse Practitioner Family; Referring Provider Nurse Practitioner Family; Visit Provider Physical Therapy Assistant | DX: Z12.11 Encounter for screening for malignant neoplasm of colon (principal) ==

== ENCOUNTER 2024-04-19 06:57 | Day surgery (SDC) | payer MEDICARE, SELFPAY ==
--- NOTE | 2024-04-18 20:26 | W.PM.DSUDISC ---
Date of service: 04/19/24 Time of Service: 08:22 Discharge Plan Disposition Patient Disposition: Home Condition: Good Discharge Details Reason For Visit: screening colonoscopy Attending Provider: Dustin Santos Primary Care Provider: Edwin Cheung Home Meds and New Rx's Prescriptions: Continued furosemide 20 mg tablet 20 mg PO DAILY Qty: 90 3RF triamcinolone acetonide 0.1 % cream 1 applic topical BID Qty: 80 1RF omeprazole magnesium [Prilosec OTC] 20 mg tablet,delayed release (DR/EC) 20 mg PO DAILY albuterol sulfate 90 mcg/actuation aerosol powdr breath activated 2 inh inhalation Q4H PRN (Reason: shortness of breath or wheezing) Qty: 1 0RF calcium carbonate-vitamin D3 [Caltrate with Vitamin D3] 1 EACH tablet 1 ea PO BID pravastatin 20 mg tablet 20 mg PO DAILY Qty: 90 3RF Rx Instructions: 01/2021 increased dose/ take one tablet daily losartan-hydrochlorothiazide 50-12.5 mg tablet See Rx Instructions .ROUTE .COMPLEX Qty: 90 3RF Dose Instruction: TAKE ONE TABLET BY MOUTH EVERY DAY Rx Instructions: TAKE ONE TABLET BY MOUTH EVERY DAY fluoxetine 20 mg capsule 20 mg PO DAILY Qty: 90 3RF Rx Instructions: take one capsule daily Discontinued bisacodyl [Dulcolax (bisacodyl)] 5 mg tablet,delayed release (DR/EC) 5 mg PO ONCE Qty: 4 0RF Rx Instructions: Take per colonoscopy instructions provided by ordering providers office polyethylene glycol 3350 17 gram/dose powder 17 g PO ONCE Qty: 238 0RF Rx Instructions: Take per colonoscopy instructions provided by ordering providers office Discharge Instructions Instructions: Diverticulosis Additional Instructions: Dianne, we are able to complete the procedure today without any difficulty. You have fairly extensive diverticulosis. Diverticula are little weak spots in the muscular part of the colon wall. They typically accumulate as we age. They can get infected and inflamed. During those episodes, we called diverticulitis. It is often times experienced as fairly sharp pain, usually on the left side or lower across the abdomen. This is typically accompanied with fevers, and general ill feeling. Patients are often times treated with antibiotics during these episodes. I hope you are is never bother you. Have attached a little bit of information here regarding basic approaches to diverticular disease otherwise, your screening colonoscopy was negative for any polyps or tumors. Typical guidelines nowadays are 10-year colonoscopies up to age 85 for patients similar to you. 1. If tolerated, consume a soft, low fiber diet for 1-2 days. 2[address] Do not drive, drink alcohol, operate machinery, make critical decisions, or do activities that require coordination or balance for 24 hours. 3. Because air was put into your colon during the procedure, expelling air from your rectum (passing gas or farting) is normal. 4. You may not have a bowel movement for 1-3 days because of the colonoscopy prep. This is normal. 5. Go directly to the emergency room if you notice any of the following: Develop chills (warm to touch), or if you have a thermometer and your temperature is above 101 Difficulty breathing or difficultly swallowing Persistent vomiting Severe abdominal pain, other than gas cramps Severe chest pain Black, tarry stools Any bleeding ? exceeding one tablespoon 6. Call your physician if the site where your intravenous was started becomes red, swollen, painful, and warm to touch. 7. Your physician has reviewed your pre-procedure medications. Please continue to take those medications as previously ordered. You will be given specific information/education regarding any changes to your medications before leaving. Activity:: Activity as Tolerated Diet:: As Tolerated Discharge Orders Discharge Orders: Discharge Order (Routine); Ordered 04/18/24 Ordered By: Dustin Santos DS: Diagnosis Discharge Diagnosis (1) Encounter for screening colonoscopy: Status: Acute Asessment and Plan: Diverticulosis; otherwise negative screening colonoscopy. Consider follow-up study in 10 years
--- NOTE | 2024-04-18 20:46 | HPE_ITS ---
Assessment and Plan Assessment and plan (1) Encounter for screening colonoscopy: Status: Acute Assessment and plan: we reviewed the plan for a screening colonoscopy today and I explained the risks and the benefits of the procedure. I think Dianne has a good understanding of what to expect, and she had the opportunity to ask any questions. She provided informed consent and we can proceed with colonoscopy as planned. History of Present Illness History of Present Illness Chief Complaint: screening colonoscopy Narrative: 68 y/o female with history of GERD, HELEN (nightly CPAP use), obesity, HLD and HTN presents for colonoscopy screening pre-op. Her last screening was in 2013, which was unremarkable. She denies a family history of colon cancer. She denies any changes in bowel habits including bloody or black tarry stools, abdominal pain, diarrhea or constipation. She denies constitutional symptoms. She denies chest pain, palpitations, dyspnea or dyspnea with exertion. She denies prior history or family history of adverse reactions or complications with anesthesia. The patient denies any history of stroke, MT, seizures, bleeding or clotting disorders. She denies having any implanted metal in her body. Since her last office visit, of there have been no significant interval changes to the history or physical exam. PFS All Active Problems Encounter for screening colonoscopy (Acute) Shortness of breath (Acute) Low back pain (Acute) Right knee pain (Acute) Sciatica of right side (Acute) Morbid obesity with BMI of 40.0-44.9, adult (Acute) Edema (Acute) HELEN on CPAP (Chronic) Hyperlipidemia (Acute 12/24/12) Essential hypertension (Chronic 06/09/13) Depressive disorder (Acute) Medical History Reactive airway disease with acute exacerbation COVID-19 virus infection Tested positive 07/12/20, convalescing at home. Declined Bamlanivkamala 07/19/20 Gastroesophageal reflux disease 2010 gastroscopy: neg. H.Pylori Dysplasia of cervix cryotherapy; normal paps since then Family History Mother , 88 Stroke Hypertension Father , 82 Essential hypertension Aortic aneurysm Cancer Sister Diabetes Morbid obesity Essential hypertension Heart disease Coronary Brother Morbid obesity Essential hypertension Chronic kidney disease Neoplasm Lymph nodes Lymph node cancer Maternal Grandfather , 78 No problems noted. Paternal Grandfather , 80 No problems noted. Maternal Grandmother , 80 No problems noted. Paternal Grandmother , 80 No problems noted. Sister Morbid obesity Essential hypertension Depression Ovarian cancer Social History Smoking/Tobacco Use Status: Never Second Hand Exposure: Yes Smoking risk assessment performed?: Yes Alcohol Intake: current Alcohol Intake frequency: a few times a week Alcohol type: wine Drug use: Never Substance use type: does not use Caregiver/Support person: No Household members: spouse Housing: house Communication Needs: Corrective Lenses Do you need help understanding health information?: Rarely current occupation: retired customer service in a bank Pets and animals: Yes Pets and animals: cat(s) Sexually active: No Do you think of yourself as: straight/heterosexual Current gender identity: female What is your relationship status?: How often do you talk on the phone with friends or family?: twice per week How often do you get together with friends or relatives?: three or more times per week How often do you attend shinto or zoroastrian services?: decline to answer Do you belong to any clubs or organized social groups?: decline to answer Panel score (0-1 are the most socially isolated patients): 2 What type of physical activity do you participate in: none Mikala/Jehovah'S Witness: None Special mikala needs: No Seatbelt use: always Drive intox or ride w/intox driver utility worker: No Do you feel safe at home: Yes Do you feel safe in your relationship?: Yes Meds Allergies and Home Medications Allergies Allergy/AdvReac Type Severity Reaction Status Date / Time lisinopril AdvReac Intermediate COUGH Verified 04/19/24 07:09 Home Medications ?Medication ?Instructions ?Recorded ?Confirmed ?Type calcium carbonate 600 mg-vitamin 1 ea PO BID 12/30/12 04/19/24 History D3 20 mcg (800 unit) tablet (Caltrate with Vitamin D3) omeprazole magnesium 20 mg 20 mg PO DAILY 12/26/21 04/19/24 History tablet,delayed release (Prilosec OTC) albuterol sulfate 90 mcg/actuation 2 inh inhalation Q4H PRN shortness 05/18/22 04/19/24 Rx breath activated powder inhaler of breath or wheezing #1 ea pravastatin 20 mg tablet 20 mg PO DAILY #90 tabs 05/26/23 04/19/24 Rx losartan 50 mg-hydrochlorothiazide See Rx Instructions .Route 07/30/23 04/19/24 Rx 12.5 mg tablet .COMPLEX #90 tabs fluoxetine 20 mg capsule 20 mg PO DAILY #90 tab-caps 08/05/23 04/19/24 Rx furosemide 20 mg tablet 20 mg PO DAILY #90 tabs 12/30/23 04/19/24 Rx triamcinolone acetonide 0.1 % 1 applic topical BID #80 grams 12/30/23 04/19/24 Rx topical cream Exam Const General: cooperative and not in acute distress Neck Neck: normal visual inspection, no lymphadenopathy and supple Resp Effort & Inspection: normal respiratory effort Auscultation: clear to auscultation bilaterally Cardio Jugular venous pressure: no JVD Rate: regular rate Rhythm: regular rhythm Heart Sounds: S1 normal and S2 normal GI Inspection: normal to inspection Palpation: soft, no guarding, no hernias and nontender Percussion: normal to percussion Auscultation: normal bowel sounds Neuro General: patient alert, patient awake and patient oriented x3 Psych Appearance: grossly normal
--- NOTE | 2024-04-18 20:49 | COLE_ITS ---
Date of service: 04/19/24 Time of Service: : Colonoscopy Report Date of procedure: 04/19/24 Pre-op diagnosis general: screening colonscopy Post-op diagnosis procedure note: other (Diverticulosis) Procedure: colonoscopy Surgeon: Dustin Santos Anesthesia Type: General:No Airway Estimated blood loss (mL): 0 Pathology: none sent Complications: None Disposition: same day Indications: Dianne is a 68 year old women who needs her next screening colonsocopy Prep: Miralax/Dulcolax Procedure Start Time: 07:53 Procedure End Time: 08:13 Retraction Time: 7 Findings: Extensive pancolonic diverticulosis Procedure Description: After the induction of anesthesia, and with the patient in left lateral decubitus position, I began by performing an external anorectal exam.? Perineum and skin were normal, as was the anal verge.? There was no evidence of external hemorrhoids.? Next, I performed a digital rectal exam.? I did not appreciate any abnormal findings.? Next, I advanced a colonoscope into the rectal vault.? I performed retroflexion.? I this appeared normal.? Using insufflation, I then advanced the colonoscope beyond the rectal folds and into the sigmoid colon before advancing towards the cecum.? There was diverticulosis beginning in the sigmoid colon, and extending through all segments. Majority of the diverticula are wid[place] and cavernous. Great care was taken to maintain the true lumen.? The scope was noted to be in the cecum by identification of the ileocecal valve and appendiceal orifice.? I then began withdrawing the colonoscope using repeated irrigation as necessary for full evaluation of the colonic mucosa. ?Once the scope was withdrawn to the level of the rectum, great care was taken to examine portions of the rectal folds.? Finally, the scope was withdrawn and the patient was brought to the same-day surgery recovery unit as the anesthetic wore off. ?The findings and instructions were shared with the patient prior to discharge. [place] Bowel Prep [place] Bowel Prep Right Colon: 3 Left Colon: 2 Transverse Colon: 3 Total Score: 8
[2024-04-19 07:00] VITALS: BP 152/89; PULSE 79; RESP 18; TEMP 36; O2SAT 96
--- NOTE | 2024-04-19 07:14 | ANES.PREOP_ITS ---
General Info Date of Service Date Performed: 04/19/24 Height: 5 ft 7 in Weight: 70.307 kg Body Mass Index (BMI): 24.3 Surgical Procedure: Operation Date: 04/19/24 08:20 Proposed Procedure Side Surgeon weston Santos MD Meds Allergies and Home Medications Allergies Allergy/AdvReac Type Severity Reaction Status Date / Time lisinopril AdvReac Intermediate COUGH Verified 04/19/24 07:09 Home Medication ?Medication ?Instructions ?Recorded calcium carbonate 600 mg-vitamin 1 ea PO BID 12/30/12 D3 20 mcg (800 unit) tablet (Caltrate with Vitamin D3) omeprazole magnesium 20 mg 20 mg PO DAILY 12/26/21 tablet,delayed release (Prilosec OTC) albuterol sulfate 90 mcg/actuation 2 inh inhalation Q4H PRN shortness 05/18/22 breath activated powder inhaler of breath or wheezing #1 ea pravastatin 20 mg tablet 20 mg PO DAILY #90 tabs 05/26/23 losartan 50 mg-hydrochlorothiazide See Rx Instructions .Route 07/30/23 12.5 mg tablet .COMPLEX #90 tabs fluoxetine 20 mg capsule 20 mg PO DAILY #90 tab-caps 08/05/23 furosemide 20 mg tablet 20 mg PO DAILY #90 tabs 12/30/23 triamcinolone acetonide 0.1 % 1 applic topical BID #80 grams 12/30/23 topical cream Current Visit Medications: Current Medications Generic Name Dose Route Start Last Admin Trade Name Freq PRN Reason Stop Dose Admin Hyoscyamine Sulfate 0.125 mg 04/18/24 20:52 Hyoscyamine 0.125 Mg Sl/Oral/Chew SL 05/18/24 20:51 DIRECTED PRN Ringer's Solution 1,000 mls @ 80 mls/hr 04/19/24 06:00 IV 04/19/24 23:59 INFUSION TAHIR IV Miscellaneous Supplies 1 each 04/19/24 06:00 Iv Access IV 04/19/24 23:59 DIRECTED TAHIR Ondansetron HCl 4 mg 04/18/24 20:52 Ondansetron 4 Mg/2 Ml Vial IVP 05/18/24 20:51 Q4H PRN PRN Nausea / Vomiting Sodium Chloride 0 ml 04/19/24 06:00 Normal Saline Flush 10 Ml Syr IV 08/26/24 23:59 PRN PRN Sodium Chloride 0 ml 04/19/24 06:00 Normal Saline 10 Ml Vial IJ 04/19/24 23:59 DIRECTED PRN Sterile Water 0 ml 04/19/24 06:00 Water,Injection,Sterile 10 Ml Vial IJ 04/19/24 23:59 DIRECTED PRN PFSH Active Problems Active Problems: Problem Status Onset Code Encounter for screening colonoscopy Acute Z12.11 Shortness of breath Acute R06.02 Low back pain Acute M54.50 Right knee pain Acute M25.561 Sciatica of right side Acute M54.31 Morbid obesity with BMI of 40.0-44.9, adult Acute E66.01, Z68.41 Edema Acute R60.9 HELEN on CPAP Chronic G47.33, Z99.89 Hyperlipidemia Acute 12/24/12 E78.5 Essential hypertension Chronic 06/09/13 I10 Depressive disorder Acute F32.9 Medical History Medical History Reactive airway disease with acute exacerbation COVID-19 virus infection Tested positive 07/12/20, convalescing at home. Declined Bamlanivimab 07/19/20 Gastroesophageal reflux disease 2010 gastroscopy: neg. H.Pylori Dysplasia of cervix cryotherapy; normal paps since then Tobacco Smoking/Tobacco Use Status: Never Passive smoking exposure: Yes Second hand exposure: Yes Alcohol Alcohol Intake: current Alcohol intake frequency: a few times a week Alcohol type: wine Substance Use Substance use: Never Substance use type: does not use Vital Signs and Lab Results Vital Signs Most Recent Vital Signs in EMR: Most Recent Vital Signs Temp Pulse Resp BP Pulse Ox 36 C L 79 18 152/89 H 96 04/19/24 07:00 04/19/24 07:00 04/19/24 07:00 04/19/24 07:00 04/19/24 07:00 Lab Results Blood Type / Crossmatch: No Data to Display Complete Blood Count: No Data to Display Complete Metabolic Panel: No Data to Display Liver Function Panel: No Data to Display Coagulation Panel: No Data to Display Cardiac Panel: No Data to Display Arterial Blood Gas: No Data to Display Venous Blood Gas: 2 No Data to Display Pancreas Panel: No Data to Display Thyroid Panel: No Data to Display Infectious Disease: No Data to Display Blood Cultures: No Data to Display Toxicology Panel: No Data to Display Imaging and Studies Imaging and Studies Study information below may be from another EMR and interpreted by another provider. Please see original notes in EMR for more complete details. Echocardiogram Summary: Date of Exam: 02/12/23 Sex: F Admission Date: 02/12/23 : 1955 Age: 67 APPROVED REPORT EXAM: Comprehensive 2D, Doppler, and color-flow Echocardiogram Patient Location: Out-Patient Registered Nurse Hh Case Manager: Bernardino Wong RDMS, RVT Indications: SOB ON EXERTION, EDEMA Other Information Study Quality: Adequate Conclusion Normal left ventricular wall thickness and chamber size. Ejection fraction is 60 to 65%. Wall motion is normal Normal right ventricular size and systolic function Both atria are normal in size There is no structural or hemodynamically significant valvular disease Estimated right ventricular systolic pressure is 37 mmHg Pulmonary Function Summary: Date of service: 01/13/23 Time of Service: 14:53 Pulmonary Function Test Result Indications: Dyspnea Interpretation Spirometry: There is no airflow limitation. There is no bronchodilator response. Lung Volumes: Normal lung volumes Diffusion Capacity: Normal diffusion Airway Pressure: Normal airways resistance Impression Normal pulmonary function testing Clinical Correlation therefore is recommended. Anesthesia Assessment and Plan Anesthesia History Personal History: No History of Anesthesia Complications Family History: No Family History of Anesthesia Complications Exercise Tolerance Exercise Tolerance: Metabolic Equivalents>4 Pertinent Negatives Pertinent Negatives: No Symptoms of GERD and No Major Cardiovascular Symptoms or Complaints Cardiac & Pulmonary Exam Cardiac Exam: Normal S1/S2 Heart Sounds Pulmonary Exam: Clear Bilateral Breath Sounds Implantable Cardiac Device Does patient have a Pacemaker or an ICD?: No Airway Exam Known Difficult Airway: No Mallampati Class: 3 Mouth Opening: Normal (> 3cm) Thyromental Distance: Less than 3 cm Neck Range of Motion: Full ROM Neck Circumference: Normal Teeth Condition: Normal Dentition ASA Classification ASA Score: ASA 2 Emergency Case?: No NPO Status NPO Status: NPO Clears >2 hours, Solids >8 hours Anesthesia Plan Resuscitation Status: Full Code Anesthesia Technique: General Anesthesia Airway Planned: Natural Airway Monitors Used: Standard Monitors
[2024-04-19 07:18] VITALS: BMI 24.3
[2024-04-19] MEDS: Lactated Ringers 1,000 ML 80 ML IV (07:38)
[2024-04-19 08:17] VITALS: BP 100/76; PULSE 76; RESP 16; TEMP 36.4; O2SAT 94
[2024-04-19 08:53] VITALS: BP 144/83; PULSE 63; RESP 16; TEMP 36.7; O2SAT 99
--- NOTE | 2024-04-19 09:21 | W.ANESPOSTOP ---
Postoperative Evaluation Date, Time and Location Date Performed: 04/19/24 Time Performed: 08:30 Patient Location: Day Surgery Unit Vital Signs Most Recent Imported Vital Signs: Most Recent Vital Signs Temp Pulse Resp BP Pulse Ox 36.7 C 63 16 144/83 H 99 04/19/24 08:53 04/19/24 08:53 04/19/24 08:53 04/19/24 08:53 04/19/24 08:53 Pain Score Most Recent Pain Score: Most Recent Pain Score Pain Level 0 04/19/24 08:53 Assessment Mental Status: Awake (Alert & Oriented to Patient Baseline) Airway and Respiratory Function: Patent airway with normal (patient baseline) respiratory exam Cardiovascular Function: Hemodynamically Stable Hydration Status: Adequately Hydrated Nausea & Vomiting: No Nausea or Vomiting Pain: Pt. Denies Any Pain Peripheral Nerve Block: Patient did not receive a nerve block
== END 2024-04-19 09:07 | disposition home or self-care (01) ==
LOC: SUR 06:58
PROVIDERS: PCP Nurse Practitioner Family; Visit Provider Surgery
PROC: 0DJD8ZZ Inspection of Lower Intestinal Tract, Via Natural or Artificial Opening Endoscopic (ICD-10-PCS; CPT 45378; principal; 2024-04-19 08:15)
DX: Z12.11 Encounter for screening for malignant neoplasm of colon (principal); I10 Essential (primary) hypertension; K57.30 Diverticulosis of large intestine without perforation or abscess without bleeding
CPT/HCPCS: G0121; J2704

== ENCOUNTER 2024-06-02 15:24 | Outpatient (REF) | payer MEDICARE, SELFPAY ==
[2024-06-02 21:25] LABS: Abs Immature Grans 0.02 10^3/uL (0.0-0.06); Absolute Basophil Count 0.05 10^3/uL (0.0-0.2); Absolute Eosinophil Count 0.08 10^3/uL (0.0-0.7); Absolute Lymphocyte Count 1.87 10^3/uL (1.2-3.4); Absolute Monocyte Count 0.49 10^3/uL (0.1-0.8); Absolute Neutrophil Count 3.68 10^3/uL (1.2-6.7); Basophils % 0.8 %; Eosinophils % 1.3 %; HCT 40.5 % (36.0-46.0); HGB 13.5 g/dL (11.2-15.7); Immature Grans % 0.3 %; Lymphocytes % 30.2 %; MCH 30.8 pg (27.0-33.0); MCHC 33.3 % (32.0-36.0); MCV 93 fL (80-95); MPV 10.2 fL (8.0-11.0); Monocytes % 7.9 %; Neutrophils % 59.5 %; Platelet Count 275 10^3/uL (130-400); RBC 4.38 10^6/uL (3.93-5.22); RDW 12.6 % (11.7-14.6); RDW-SD 41.6 fL; WBC 6.19 10^3/uL (4.4-10.8)
[2024-06-02 21:27] LABS: Bilirubin Negative (Negative); Blood Trace-lysed (Negative); Clarity Clear (Clear); Glucose Negative (Negative); Ketones Negative (Negative); Leukocyte Esterase Small (Negative); Nitrite Negative (Negative); Specific Gravity 1.015 (1.005-1.025); Urobilinogen 0.2 mg/dL (Up to 0.2)
[2024-06-02 21:35] LABS: Bacteria Many HPF (Negative); C & S Indicated? Yes; Crystals Negative HPF (Negative); Epithelial Cells Negative HPF (Negative); Mucus Negative (Negative); RBC 0-2 HPF (0-2)
[2024-06-02 22:10] LABS: ALT 27 U/L (14-59); AST 16 U/L (15-37); Albumin 3.6 g/dL (3.4-5.0); Alkaline Phosphatase 83 U/L (46-116); Anion Gap 11.3 mmol/L (3-11); BUN 15 mg/dL (7-18); CO2 27.7 mmol/L (21.0-32.0); CREATININE 0.8 mg/dL (0.55-1.02); Calcium 8.9 mg/dL (8.5-10.1); Chloride 100 mmol/L (98-107); Estimated GFR 79.71 (mL/min/1.73m2); Glucose 95 mg/dL (74-106); Sodium 139 mmol/L (136-145); TSH (W/Ref FT4) 0.98 uIU/mL (0.36-3.74); Total Protein 6.8 g/dL (6.4-8.2); Vitamin B12 273 pg/mL (193-986)
== END 2024-06-02 15:25 | disposition home or self-care (01) ==
LOC: LBN 15:24
PROVIDERS: PCP Nurse Practitioner Family; Visit Provider Nurse Practitioner Family
DX: R53.1 Weakness (principal); R53.81 Other malaise
CPT/HCPCS: 80053; 87077; 81003; 81015; 82607; 84443; 85025; 87086; 87186

== ENCOUNTER 2024-06-03 12:13 | Outpatient (CLI) | payer MEDICARE, SELFPAY ==
--- NOTE | 2024-06-03 10:00 | DI.MRI_ITS ---
Exam(s) MR LUMBAR SPINE WO EXAM: MR LUMBAR SPINE WO CLINICAL HISTORY: M54.50,M54.31, R53.1,W19.XXXA increasing weakness despite PT. TECHNIQUE: Multiplanar multisequence MRI of the Lumbar spine was performed. COMPARISON: CR XR LUMBAR SPINE COMPLETE from 07/09/2022 FINDINGS: Conus medullaris is at normal level. There is no evidence of conus mass nor subjacent clumping of in trathecal nerve roots to suggest arachnoiditis. 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 Bones:There are no fractures nor ominous osseous lesions in the lumbar vertebral bodies and visualize d sacrum. With respect to the individual levels... T11-T12: Normal disc height and signal. There is a posterolateral left shallow disc herniation breas t cyst which extends posteriorly 4 mm. Slightly impresses the thecal sac. Central canal dimensions are within normal limits. There is no significant foraminal stenosis on either side at this level. T12-L1: Unremarkable L1-2: This level exhibits chronic uniform disc space narrowing. Posteriorly there is broad annular b ulging with extension into the exiting neural foramina bilaterally. Central canal dimensions are low er normal. There is foraminal stenosis on the left side and milder foraminal stenosis on the right s vero at this level. Facet joints exhibit minimal degenerative changes. L2-3: This level exhibits moderate uniform disc space narrowing and in addition there are prominent l ateral left bridging osteophytes which extend 2.6 cm laterally. There is broad relatively symmetrica l annular bulging without a distinct focal disc herniation. Central canal dimensions are lower sebastián l. No foraminal stenosis on the right side nor on the left side despite the presence of the large os teophytes extending laterally at this level. Facet joints at this level exhibits mild-moderate degene rative changes. L3-4: This level exhibits chronic disc space narrowing, CIS slightly more so on the left side. There is broad annular bulging at this level with superimposed shallow central subligamentous disc protrus ion which impresses the anterior thecal sac. Thecal sac is also somewhat compressed posteriorly by e pidural lipomatosis at this level.Mild central canal stenosis. Mild bilateral foraminal stenosis. M oderate facet arthropathy. L4-5: This level exhibits asymmetric disc space narrowing on the right side and lateral right-sided o steophytes which extend laterally approximately 1 cm. There is significant posterior-central and rig ht paracentral annular bulging which significantly narrows the right lateral recess at this level and effaces the anterior thecal sac at this level. Annular bulging extends into the floor of the exitin g right neural foramen and there is severe unilateral right-sided foraminal stenosis at this level. There is only mild foraminal stenosis on the opposite-left side. Facet joints at this level exhibit moderate degenerative changes, more so on the right than the left side. L5-S1: This level exhibits uniform advanced disc space narrowing. Posteriorly there is mild annular bulging without a significant disc herniation and central canal dimensions are normal at this level. There is mild foraminal stenosis on the right side. No foraminal stenosis on left side. Minimal fa cet arthropathy noted at this level. Soft tissues: Symmetrical atrophy of the posterior spinal musculature is noted. There is no signifi cant atrophy of the psoas muscles. IMPRESSION: 1. Multilevel chronic degenerative disc disease as described individually above. 2. No listhesis evident. Some mild foraminal stenosis noted at L3-4 and L4-5 levels. 3. Asymmetric foraminal stenosis as described above. DATA REPOSITORY:
== END 2024-06-03 12:33 ==
PROVIDERS: PCP Nurse Practitioner Family; Visit Provider Nurse Practitioner Family
DX: M51.362 Other intervertebral disc degeneration, lumbar region with discogenic back pain and lower extremity pain
CPT/HCPCS: 72148

== ENCOUNTER 2024-07-14 10:55 | Outpatient (CLI) | payer MEDICARE, SELFPAY ==
--- NOTE | 2024-07-14 08:48 | DI.RAD_ITS ---
Exam(s) XR HIP PELVIS ADULT BL EXAM: XR HIP PELVIS ADULT BL CLINICAL HISTORY: KAMILAH HIP PAIN, M25.551, M25.552. TECHNIQUE: 2D digital imaging was performed. Three views. COMPARISON: No exams were available for comparison FINDINGS: BONES: No acute fracture is present. No bony destructive lesion is seen. Small enthesophytes at the g reater trochanters and iliac wings. There are severe degenerative changes of the lower lumbar spine. JOINTS: No dislocation present. Mild right hip joint space narrowing. Mild bilateral acetabular spu rring greater superiorly.. The SI joints and pubic symphysis show mild degenerative changes. SOFT TISSUE: Normal. IMPRESSION: Mild degenerative changes of the right hip. DATA REPOSITORY: RADIATION DOSE DELIVERED:
== END 2024-07-14 11:15 ==
LOC: DI 10:59
PROVIDERS: PCP Nurse Practitioner Family; Visit Provider Anesthesiology Pain Medicine
DX: M25.552 Pain in left hip; M16.12 Unilateral primary osteoarthritis, left hip
CPT/HCPCS: 73521

== ENCOUNTER 2024-07-16 01:46 | Outpatient (CLI) | payer MEDICARE, SELFPAY ==
--- NOTE | 2024-07-16 09:30 | DI.MAMMO_ITS ---
Exam(s) MAMMO SCREENING EXAM: MAMMO SCREENING CLINICAL HISTORY: screening,Z12.39. TECHNIQUE: Bilateral full field digital CC and MLO mammographic images were obtained with 3D tomosyn thesis and utilizing computer aided detection (CAD). COMPARISON: Prior mammograms were reviewed. FINDINGS: There has been no significant change in the appearance and distribution of the fibroglandular tissue. No new left breast findings. In the right breast there is a small microcalcification noted lateral of center located 9.5 cm in fro m the nipple, unchanged from mammogram of 07/17 more evident than on prior mammograms although slight ly evident in 2021. These may be within a small nodule. Spot compression view recommended. There is no significant architectural distortion nor skin thickening-retraction. IMPRESSION: 1. No radiographic evidence of malignancy left breast 2. Small microcalcification group in the right breast described above. Spot magnification views and possible ultrasound recommended BI-RADS Category 0 - Incomplete: Need additional imaging evaluation Breast Density - Category B - Scattered areas of fibroglandular density Breast density Category C or D implies that the patient has dense breast tissue. Dense breast tissue can make it harder to find cancer on a mammogram. Dense breast tissue is also associated with an incr eased risk of breast cancer. This information about the result of the mammogram report was provided to the patient to raise their awareness. Use this report when you speak with the patient about their risks for breast cancer, which includes their family history. At that time, you may recommend additional screening tests (Ultrasoun d or MRI) as these tests may add significant information. A negative radiographic report should not delay biopsy if a dominant or clinically suspicious mass is present. Up to ten percent of cancers are not identified on mammography. A negative report may reinforce clinical impression. Adenosis and dense breasts may obscure an underlying neoplasm. False positive reports average 6 to 10%. Patient will receive a letter notifying them of these results.
== END 2024-07-16 02:06 ==
LOC: DI 01:46
PROVIDERS: PCP Nurse Practitioner Family; Visit Provider Nurse Practitioner Family
DX: Z12.31 Encounter for screening mammogram for malignant neoplasm of breast (principal); R92.323 Mammographic fibroglandular density, bilateral breasts
CPT/HCPCS: 77063; 77067

== ENCOUNTER 2024-07-26 02:17 | Outpatient (CLI) | payer MEDICARE, SELFPAY ==
--- NOTE | 2024-07-26 | DI.MAMMO_ITS ---
Exam(s) MG MAMMO SCREEN CALL BACK UNI EXAM: MG MAMMO SCREEN CALL BACK UNI INDICATION: SMALL MICROCALCIFICATIONS RT BREAST R92.8 ABNL MAMMO. COMPARISON: No exams were available for comparison TECHNIQUE: Spot magnification cc and MLO views were performed of the right breast. FINDINGS: The calcifications in question in the upper outer quadrant show a punctate, benign appearance. No as sociated mass or architectural distortion. IMPRESSION: Benign-appearing calcifications in the upper outer quadrant. BI-RADS Category 2 - Benign Findings. Yearly screening mammography is recommended.
== END 2024-07-26 02:37 ==
LOC: DI 02:17
PROVIDERS: PCP Nurse Practitioner Family; Visit Provider Nurse Practitioner Family
DX: R92.8 Other abnormal and inconclusive findings on diagnostic imaging of breast (principal); D24.1 Benign neoplasm of right breast; Z12.31 Encounter for screening mammogram for malignant neoplasm of breast
CPT/HCPCS: 77063; 77067

== ENCOUNTER 2024-08-02 13:11 | Outpatient (CLI) | payer MEDICARE, SELFPAY ==
[2024-08-02 13:17] VITALS: BP 154/85; PULSE 97; RESP 20; TEMP 36.6; O2SAT 96
--- NOTE | 2024-08-02 13:26 | PDOC.PAIN ---
Date of service: 08/02/24 Time of Service: 14:07 Pain Managment Procedure Note Procedure Note Procedure Note: Lumbar Transforaminal Epidural Steroid Injection ? Location: RIGHT L3 and L4 ? Pre-procedure Diagnosis: M54.17-Radiculopathy, lumbosacral region M54.16 Radiculopathy, lumbar region ? Post-procedure Diagnosis:? The same as above ? Sedation:? none ? Estimated blood loss:? less than 2 cc ? Surgeon:? Reggie Delacruz MD COMMENT: Patient has back pain radiating to right lower extremity with foraminal stenosis at L3 and L4 on the right. Reviewed the patient's hip x-ray which showed some mild degenerative changes as well as reexamined with no side hip or SI joint pathology on the right side. ? Procedure Detail:?? The procedure and potential risks were explained to the patient and informed written consent was obtained. The patient was escorted to the procedure room and placed in the prone position. Pillows were utilized for proper positioning and comfort. Time out was performed in the procedure room with nursing staff confirming the patient's identity, procedure to be performed, allergies, and any blood thinning or anti-platelet medications. The patient's lower back was prepped with ChloraPrep and draped in a sterile fashion. Sterile gloves were used, a face mask was worn, and new single dose vials of all medications were used with the top being swabbed with alcohol and given time to dry prior to withdrawal of medication. A right-sided oblique fluoroscopic view was obtained, with visualization of L4-5. Lidocaine 1% was used to anesthetize the skin. The tip of a 22-gauge, Quincke needle was advanced toward the 6 o'clock position of the superior pedicle at the target level.? It was advanced just under the pedicle to the neural foramen L4-5. Correct needle placement was confirmed through review of the fluoroscopy. Next, following negative aspiration, 1cc's of Omnipaque 240 contrast was injected under live fluoroscopy which showed good flow throughout the epidural space and no evidence of vascular flow or flow into adjacent compartments. Next, following negative aspiration, 7.5mg of preservative-free dexamethasone and 0.5ml of 0.5% bupivacaine was injected. The needle was gently removed.? The procedure was also performed in the same fashion at right L3-4.? The patient tolerated the procedure well.? Permanent images saved and recorded. Plan:? Follow up prn PAIN: PRE PROCEDURE 03/03 POST PROCEDURE 10/04 COMMENT: Will f/u in office if not better. Consider interlaminar MOUNIKA or repeat with Depo-Medrol
[2024-08-02 13:43] VITALS: O2SAT 94
[2024-08-02 13:50] VITALS: O2SAT 94
--- NOTE | 2024-08-02 14:04 | DI.RAD_ITS ---
Exam(s) XR PAIN CLINIC LUMBAR SP 2V EXAM: XR PAIN CLINIC LUMBAR SP 2V CLINICAL HISTORY: DX: Lumbar Radiculopathy. TECHNIQUE: Fluoroscopy was provided for the referring physician for guidance with performing pain cl inic injection procedure. COMPARISON: No exams were available for comparison FINDINGS: Please see procedure note for details. Fluoro time: 55.5 seconds RADIATION DOSE DELIVERED: Ka,r=43.64 mGy
[2024-08-02] MEDS: Omnipaque 240 MG/ML 50 ML BTL IJ (14:11)
[2024-08-02] MEDS: Bupivacaine 0.5% Pres-Free 10 ML VIAL IJ (14:11)
[2024-08-02] MEDS: Nerve Block Tray 1 EACH MC (14:12)
[2024-08-02] MEDS: Dexamethasone Sod. Phos./Pres-Free 10 MG/ML VIAL IJ (14:12)
== END 2024-08-02 13:12 | disposition home or self-care (01) ==
LOC: PC 13:11
PROVIDERS: PCP Nurse Practitioner Family; Visit Provider Anesthesiology Pain Medicine
DX: M54.50 Low back pain, unspecified (principal); M54.17 Radiculopathy, lumbosacral region; M54.16 Radiculopathy, lumbar region
CPT/HCPCS: 00123; 64483; 64484; 72100; J0665; J1100; Q9967

== ENCOUNTER → 2024-12-28 08:17 | Outpatient (BNVA) | payer MEDICARE, SELFPAY | PROVIDERS: PCP Nurse Practitioner Family; Referring Provider Nurse Practitioner Family; Visit Provider Psychiatry & Neurology Neurology | DX: M54.50 Low back pain, unspecified (principal); G20.A1 Parkinson's disease without dyskinesia, without mention of fluctuations | CPT/HCPCS: 99215 ==

== ENCOUNTER 2025-01-14 00:34 | Outpatient (CLI) | payer MEDICARE, SELFPAY ==
--- NOTE | 2025-01-14 07:30 | DI.DEXA_ITS ---
Exam(s) XR DEXA BONE DENSITY W/WO ALTHEA EXAM: XR DEXA BONE DENSITY W/WO ALTHEA CLINICAL HISTORY: Annual exam,MENOPAUSAL DISORDER,SCREENING FOR OSTEOPOROSIS, N95.9 TECHNIQUE: [employer] Horizon C densitometer analysis of left hip, lumbar spine and left forearm. Lat eral survey image of the thoracic and lumbar spine. COMPARISON: CR XR LUMBAR SPINE COMPLETE from 07/09/2022 CR XR HIP PELVIS ADULT BL from 07/14/2024 FINDINGS: Lateral view of the thoracic and lumbar spine shows no evidence of compression fractures. There ar e advanced degenerative changes with prominent endplate osteophytes which elevates the bone mineral d ensity measurements. Bone mineral density measurements of the lumbar spine correspond to a total T-score of 1.6, in the n ormal range. Bone mineral density measurements of the left hip correspond to a total T-score of 0.9 . The femoral neck T-score is -0.3, in the normal range. Theleft forearm bone mineral density measurements correspond to a T-score of the distal 3rd of -0.4, in the normal range. IMPRESSION: Normal bone mineral density.
== END 2025-01-14 00:54 ==
LOC: DI 00:34
PROVIDERS: PCP Nurse Practitioner Family; Visit Provider Nurse Practitioner Family
DX: N95.9 Unspecified menopausal and perimenopausal disorder (principal); Z13.820 Encounter for screening for osteoporosis
CPT/HCPCS: 77080

== ENCOUNTER → 2025-03-14 13:39 | Outpatient (BNVA) | payer MEDICARE, SELFPAY | PROVIDERS: PCP Nurse Practitioner Family; Referring Provider Nurse Practitioner Family; Visit Provider Psychiatry & Neurology Neurology | DX: G20.A1 Parkinson's disease without dyskinesia, without mention of fluctuations (principal); M54.50 Low back pain, unspecified; G25.0 Essential tremor | CPT/HCPCS: 99214 ==

== ENCOUNTER 2025-03-23 12:30 | Outpatient (CLI) | payer MEDICARE, SELFPAY ==
[2025-03-23] VITALS (8 sets, daily range): BP systolic 141–209; BP diastolic 72–106; PULSE 79–89; RESP 18–33; TEMP 36.3; O2SAT 93–97
--- NOTE | 2025-03-23 06:00 | DI.RAD_ITS ---
Exam(s) XR PAIN CLINIC LUMBAR SP 2V EXAM: XR PAIN CLINIC LUMBAR SP 2V CLINICAL HISTORY: Dx: Lumbar Spondylosis. TECHNIQUE: Fluoroscopy was provided for the referring physician for guidance with performing pain clinic injection procedure. COMPARISON: No exams were available for comparison FINDINGS: Please see procedure note for details. Fluoro time: 52.2 seconds RADIATION DOSE DELIVERED: kamilla Angulo=34.9 mGy
--- NOTE | 2025-03-23 13:35 | PDOC.PAIN ---
Date of service: 03/23/25 Time of Service: 13:35 Pain Managment Procedure Note Procedure Note Procedure Note: PROCEDURE NOTE Bilateral Lumbar Medial Branch Blocks Date of Service: March 23, 2025 Patient: Dianne Meyers Provider: Bolivar Molina DO, MPH Dianne Meyers has been [facility] to [facility] for lumbar medial branch blocks. Pre-operative diagnosis: Lumbar Spondylosis without Myelopathy ICD-10 M47.816 Post-operative diagnosis: Same Pre-procedure pain: VAS= 7/10 with activities COMMENTS: She was previously seen in the office. Darlyn was interviewed and the medical records were reviewed. There were no medical, pharmacologic, radiographic or other structural contraindications to attempting fluoroscopically guided local anesthetic lumbar medial branch blocks. Risks and potential side effects were discussed. I also discussed the potential benefit(s) of the procedure with Dianne, and voiced concerns were addressed. After Dianne was completely informed about the procedure, the printed consent form was signed. A standard time-out procedure was performed. Dianne was placed in the prone position on the fluoroscopy table. Automated blood pressure cuff and pulse oximeter were applied. The skin entry points for approaching the anatomic target points of the segmental medial branches of bilateral L3,L4,L5 were identified with fluoroscopy and marked. The skin at the target site area was thoroughly prepared with Chlorhexadine. The skin was then draped. Next, a 25 gauge 3.5 spinal needle was placed under fluoroscopic guidance down on to the target point (the articular pillar) for each respective segmental medial branch. Position was confirmed in A/P and lateral views. Aspiration revealed no blood or clear fluid. Next, 0.25ml of omnipaque 240 was injected at each level. No contrast following a vascular or neural pattern was visualized under continuous fluoroscopy. Next, 0.25 ml of preservative-free 0.5% bupivicaine was injected at each level. There was no unusual discomfort expressed by Dianne. The needles were withdrawn without difficulty. (49 mls of Omnipaque was wasted) Dianne was observed and was without hemodynamic, neurologic, or allergic reactions.? Fluoroscopic images were digitally archived. Provacative testing using the Modified Chinchilla's facet loading test- Left side Right Side Directly before the block VAS (0-10) = 7/10 VAS (0-10) = 7/10 Five minutes after the block VAS (0-10) = 1/10 VAS (0-10) = 1/10 Percentage relief obtained with this diagnostic block 90% 90% Any improved physical functioning directly after the blocks? Able to move her back with ease. Follow up plans and appointments were discussed with Dianne. Dianne was instructed to keep careful note of how the usual pain was modified by these injections. Specifically, to keep a pain diary for the next 4 hours using a numeric pain scale of 0-10 and report these results. Post procedure instruction was given as documented in the nursing documentation and having met discharge criteria, the patient was [facility]. Based on the medial branches blocked today, if they patient has adequate relief and we are able to proceed to radiofrequency ablation, the treatment should result in the denervation of the bilateral L4-L5 and L5-S1 facet joints. We would expect to denervate a total of 4 facets during the radiofrequency ablation. COMMENTS: No apparent complications. Post-procedure pain: VAS= 1/10 Dianne will call back with 0-4 hour post-procedure pain scores. I personally performed the entire procedure. BOLIVAR MOLINA DO, MPH ABPM&R-subspecialty board certification in Pain Medicine [facility] Coding Conscious Sedation used for procedure: No CPT Codes: LMBB (includes Fluoro) Lumbar/Sacral, 2nd lvl - 51500 ([id number] ~G) LMBB (includes Fluoro) Lumbar/Sacral, single lvl *BILATERAL* - [id number] ([id number]~G5) Additional Codes: Date of Service (83683) Date of service: 03/23/25 Diagnoses: Lumbar spondylosis without myelopathy
[2025-03-23] MEDS: Bupivacaine 0.5% Pres-Free 10 ML VIAL IJ (13:41)
[2025-03-23] MEDS: Omnipaque 240 MG/ML 50 ML BTL IJ (13:41)
[2025-03-23] MEDS: Nerve Block Tray 1 EACH MC (13:41)
== END 2025-03-23 12:31 | disposition home or self-care (01) ==
LOC: PC 12:30
PROVIDERS: PCP Nurse Practitioner Family; Visit Provider Preventive Medicine Occupational Medicine
DX: M47.816 Spondylosis without myelopathy or radiculopathy, lumbar region (principal); M54.50 Low back pain, unspecified
CPT/HCPCS: 64493; 64494; 72100; J0665; Q9967

== ENCOUNTER → 2025-06-07 14:54 | Outpatient (BNVA) | payer MEDICARE, SELFPAY | PROVIDERS: PCP Nurse Practitioner Family; Referring Provider Nurse Practitioner Family; Visit Provider Psychiatry & Neurology Neurology | DX: G20.A1 Parkinson's disease without dyskinesia, without mention of fluctuations (principal); G25.0 Essential tremor; I10 Essential (primary) hypertension | CPT/HCPCS: 99214 ==